=== PATIENT | female | born 1935 | race Caucasian/White ===

== ENCOUNTER 2019-12-24 18:55 | Inpatient (IN) | payer MEDICARE ==
[2019-12-24 19:43] VITALS: BMI 19.2
[2019-12-24] MEDS ORDERED: Furosemide 20 MG TAB PO PRN (21:26)
[2019-12-24] MEDS: Famotidine 20 MG TAB PO SCH (21:51)
[2019-12-24] MEDS: Apixaban 5 MG TAB PO SCH (21:51)
[2019-12-24] MEDS: Mirtazapine 30 MG TAB PO SCH (21:51)
[2019-12-24] MEDS: Sotalol HCl 80 MG TAB PO SCH (21:52)
[2019-12-25 05:57] LABS: ALT (SGPT) 10 U/L (8-55); AST (SGOT) 21 U/L (5-34); Albumin 3.4 g/dL (3.4-4.8); Alkaline Phosphatase 81 U/L (40-110); Anion Gap 14 mmol/L (10-20); BUN (Urea Nitrogen) 33 mg/dL (9.8-20.1); Bilirubin, Total 0.7 mg/dL (0.2-1.2); Calc. Creatinine Clearance 52 mL/min (70-130); Calcium 8.3 mg/dL (7.8-10.44); Carbon Dioxide 26 mmol/L (23-31); Chloride 103 mmol/L (98-107); Estimated GFR-MDRD 81; Glucose 110 mg/dL (83-110); Potassium 4.2 mmol/L (3.5-5.1); Protein, Total 5.4 g/dL (6.0-8.3); Sodium 139 mmol/L (136-145)
[2019-12-25 06:19] LABS: Hemoglobin 7.6 g/dL (12.0-16.0); Hypochromia SLIGHT = 6-15 cells (100X) (0-5/hpf); Lymphocytes 85 % (21-51); MDiff Complete? YES; Mean Corpuscular HGB CONC 32.8 g/dL (32.0-36.0); Mean Corpuscular Hemoglobin 32.1 pg (27.0-31.0); Mean Corpuscular Volume 97.9 fL (78.0-98.0); Mean Platelet Volume 8.3 fL (7.4-10.4); Neutrophil 15 % (42-75); Platelet Count 44 thou/uL (130-400); Platelet Morphology Comment Appears Decreased; RBC Distribution Width 16.4 % (11.5-14.5); Red Blood Cell (RBC) Count 2.38 mill/uL (4.20-5.40)
[2019-12-25 06:27] LABS: White Blood Cell (WBC) Count 5.3 thou/uL (4.8-10.8)
[2019-12-25] MEDS: Ipratropium Bromide 0.06% Nasal Inhaler 15ml EA NARE SCH ×3 (08:07→21:30)
[2019-12-25] MEDS: Apixaban 5 MG TAB PO SCH ×2 (08:08→21:30)
[2019-12-25] MEDS: Famotidine 20 MG TAB PO SCH ×2 (08:08→21:29)
[2019-12-25] MEDS: metFORMIN 500 MG TAB PO SCH ×2 (08:08→17:07)
[2019-12-25] MEDS: Sotalol HCl 80 MG TAB PO SCH ×2 (08:08→21:30)
[2019-12-25] MEDS: Acetaminophen 325 MG TAB PO PRN (13:47)
--- NOTE | 2019-12-25 14:25 | HP ---
CHIEF COMPLAINT: Left hip fracture, status post surgical fixation, for therapy. 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 She noticed immediate pain. She was evaluated in the emergency room, which confirmed a femoral neck fracture. She underwent surgical fixation with arthroplasty. She was felt to be a candidate for inpatient rehabilitation and transferred here. Of note, the patient was noticed to have thrombocytopenia and was given platelet transfusion prior to surgery. She does have history of chronic lymphocytic leukemia. The patient is up in bed, working with therapy. She came to us with no pain medicines, and I have started Tylenol. Apparently, ice packs helped. She apparently had episodes of confusion with both [place] and tramadol. PAST MEDICAL HISTORY: 1. Chronic lymphocytic leukemia. 2. Hypertension. 3. Diabetes mellitus, type 2. 4. Dyslipidemia. 5. Osteoporosis. 6. Possible atrial fibrillation. PAST SURGICAL HISTORY: 1. Pacemaker placement. 2. Left knee arthroplasty. 3. Hysterectomy. 4. EGD. ALLERGIES: CODEINE. PSYCHOSOCIAL HISTORY: Denies any tobacco, alcohol, or recreational drug abuse. FAMILY HISTORY: Positive for colon cancer in her mother. Father had a stroke. One brother had myocardial infarction. MEDICATIONS: She has been transferred here on the following medications: 1. Eliquis 5 mg b.i.d. 2. Lipitor 10 mg daily. 3. Pepcid 20 mg b.i.d. 4. Lasix 20 mg daily as needed. 5. Metformin 500 mg b.i.d. 6. Remeron 30 mg at bedtime. 7. Sotalol 80 mg b.i.d. REVIEW OF SYSTEMS: CARDIOVASCULAR: Denies any chest pain, shortness of breath, palpitations, PND, orthopnea, or pedal edema. RESPIRATORY: Denies any chronic cough, expectoration, or pleuritic-type chest pain. GASTROINTESTINAL: Denies any nausea, vomiting, diarrhea, constipation, hematemesis, melena, or hematochezia. GENITOURINARY: Denies any frequency, urgency, dysuria, or hematuria. CENTRAL NERVOUS SYSTEM: Generalized weakness. EXTREMITIES: Left hip and leg pain. SKIN: Denies any rash. PHYSICAL EXAMINATION: GENERAL: Pleasant, 84-year-old, female, up in bed, trying to work with therapy. No family at bedside. Discussed with nursing. VITAL SIGNS: She is afebrile, heart rate 86, respirations 20, oxygen saturation 92% on room air, blood pressure 118/67. CARDIOVASCULAR: S1 and S2 plus. RESPIRATORY: Normal vesicular breath sounds. ABDOMEN: Soft and nontender. Bowel sounds heard in all quadrants. EXTREMITIES: Without cyanosis or clubbing. Peripheral pulses are palpable. Left hip incision with dressing. CENTRAL NERVOUS SYSTEM: Grossly nonfocal. LABORATORY DATA: laboratory values done this morning show a sodium of 139, potassium 4.2, BUN and creatinine are 33 and 0.69. Blood sugars are 110 and 182. White count is 5.3, H and H are 7.6 and 23.2 with a platelet count of 44. IMPRESSION: 1. Left hip fracture, status post surgical fixation. 2. Diabetes mellitus, type 2. 3. Hypertension. 4. Dyslipidemia. 5. Chronic lymphocytic leukemia. 6. Atrial fibrillation. 7. History of heart failure. 8. Osteoporosis. 9. Deconditioning. PLAN: 1. Continue current medications. 2. 1800-calorie heart-healthy ADA diet. 3. Accu-Cheks with sliding scale coverage. 4. DVT prophylaxis - the patient is on Eliquis. 5. Decubitus precautions. 6. Stress ulcer prophylaxis. 7. Routine laboratory values to monitor platelet counts and hemoglobin. 8. Orthopedic precautions and incision care. 9. Monitor heart rate and rhythm. 10. Consult PT/OT eval and treat. 11. Discussed with the patient in detail. All questions answered. 12. No family at bedside. 13. Start Tylenol 650 q.6 p.r.n. and monitor pain and adjust medications as needed. Job ID: [id number]
[2019-12-25] MEDS: Mirtazapine 30 MG TAB PO SCH (21:29)
[2019-12-25] MEDS: Atorvastatin Calcium 10 MG TAB PO SCH (21:29)
[2019-12-26] MEDS: Apixaban 5 MG TAB PO SCH (08:40)
[2019-12-26] MEDS: Sotalol HCl 80 MG TAB PO SCH ×2 (08:44→21:23)
[2019-12-26] MEDS: metFORMIN 500 MG TAB PO SCH ×2 (08:44→16:00)
[2019-12-26] MEDS: Famotidine 20 MG TAB PO SCH ×2 (08:46→21:24)
[2019-12-26] MEDS: Ipratropium Bromide 0.06% Nasal Inhaler 15ml EA NARE SCH ×3 (08:46→21:24)
--- NOTE | 2019-12-26 10:34 | PRG ---
DATE OF SERVICE: SUBJECTIVE: Ms. Gardiner is doing well. Denies any complaints. No family at bedside. Discussed with nursing. OBJECTIVE: VITAL SIGNS: She is afebrile. Heart rate 71, respirations 20, oxygen saturation 92% on room air, blood pressure 126/68. CARDIOVASCULAR: S1 and S2 plus. RESPIRATORY SYSTEM: Normal vesicular breath sounds. ABDOMEN: Soft and nontender. Bowel sounds heard in all quadrants. EXTREMITIES: Without cyanosis or clubbing. IMPRESSION: 1. Left hip fracture, status post surgical fixation. 2. Chronic lymphocytic leukemia. 3. Diabetes mellitus, type 2. 4. Hypertension. 5. Dyslipidemia. 6. Osteoporosis. 7. Atrial fibrillation. PLAN: 1. Continue current medications. 2. An 1800-calorie heart healthy ADA diet. 3. Accu-Cheks with sliding scale coverage. 4. DVT prophylaxis - the patient is on Eliquis. 5. Decubitus precautions. 6. Stress ulcer prophylaxis. 7. Orthopedic precautions and incision care. 8. Continue therapy. 9. Discussed with the patient in detail. All questions answered. 10. Recheck CBC in the morning. Job ID: [id number]
[2019-12-26] MEDS: Apixaban 2.5 MG TAB PO SCH ×2 (12:33→21:24)
[2019-12-26] MEDS: Acetaminophen 325 MG TAB PO PRN (13:05)
[2019-12-26] MEDS: Mirtazapine 30 MG TAB PO SCH (21:23)
[2019-12-26] MEDS: Atorvastatin Calcium 10 MG TAB PO SCH (21:23)
[2019-12-27 05:55] LABS: Band 1 % (5-11); Hypochromia SLIGHT = 6-15 cells (100X) (0-5/hpf); Lymphocytes 84 % (21-51); MDiff Complete? YES; Mean Corpuscular HGB CONC 33.1 g/dL (32.0-36.0); Mean Corpuscular Hemoglobin 32.4 pg (27.0-31.0); Mean Corpuscular Volume 97.9 fL (78.0-98.0); Mean Platelet Volume 8.7 fL (7.4-10.4); Monocytes 1 % (0-10); Neutrophil 12 % (42-75); Platelet Count 39 thou/uL (130-400); Platelet Morphology Comment Appears Decreased; Polychromasia SLIGHT = 2-3 cells (100X) (0-2/hpf); RBC Distribution Width 16.5 % (11.5-14.5); Reactive Lymphocytes 2 % (0-10); Red Blood Cell (RBC) Count 2.15 mill/uL (4.20-5.40); White Blood Cell (WBC) Count 3.9 thou/uL (4.8-10.8)
[2019-12-27] MEDS: Famotidine 20 MG TAB PO SCH ×2 (08:39→21:20)
[2019-12-27] MEDS: Sotalol HCl 80 MG TAB PO SCH ×2 (08:40→21:20)
[2019-12-27] MEDS: metFORMIN 500 MG TAB PO SCH ×2 (08:40→17:41)
[2019-12-27] MEDS: Apixaban 2.5 MG TAB PO SCH ×2 (08:40→21:21)
[2019-12-27] MEDS: Ipratropium Bromide 0.06% Nasal Inhaler 15ml EA NARE SCH ×3 (08:42→21:21)
[2019-12-27] MEDS: Acetaminophen 325 MG TAB PO PRN (15:14)
[2019-12-27] MEDS: Atorvastatin Calcium 10 MG TAB PO SCH (21:20)
[2019-12-27] MEDS: Mirtazapine 30 MG TAB PO SCH (21:20)
--- NOTE | 2019-12-28 07:14 | PRG ---
DATE OF SERVICE: 12/27/2019 SUBJECTIVE: The patient lying in the bed, sleeping, awakens, alert, slightly confused. Does remember the physician from , but is denying any complaints in her left hip, and some lack of memory about the cause of the fall. She denies any shortness of breath, chest pain, palpitations, nausea, or vomiting. LABORATORY DATA: Shows white count 3900, hematocrit 21, hemoglobin 7. Accu-Cheks ranged from 126 to 162. OBJECTIVE: LUNGS: Clear with decreased breath sounds. CARDIAC: Showed rhythm. ABDOMEN: Soft and nontender. EXTREMITIES: Left hip incision healing well. ASSESSMENT: 1. Resolving left hip fracture, status post open reduction and internal fixation. 2. Chronic lymphocytic leukemia with chronic anemia. We will monitor closely. 3. Type 2 diabetes, controlled to goal. 4. Atrial fibrillation with rate controlled on anticoagulation. 5. Hypertension, controlled to goal. PLAN: 1. Continue PT, OT. 2. Continue rate control on anticoagulation of atrial fibrillation. 3. Continue stress ulcer prophylaxis. 4. Continue to monitor CBC and basic metabolic profile closely to monitor renal function and her chronic lymphocytic leukemia. Job ID: [id number]
[2019-12-28 07:36] LABS: Anisocytosis MODERATE=16-30 cells (100X) (0-5/hpf); Band 4 % (5-11); Hypochromia SLIGHT = 6-15 cells (100X) (0-5/hpf); Lymphocytes 83 % (21-51); MDiff Complete? YES; Mean Corpuscular Hemoglobin 32.5 pg (27.0-31.0); Mean Corpuscular Volume 98.7 fL (78.0-98.0); Mean Platelet Volume 8.2 fL (7.4-10.4); Neutrophil 13 % (42-75); Platelet Count 42 thou/uL (130-400); Platelet Morphology Comment Appears Decreased; RBC Distribution Width 16.9 % (11.5-14.5); Red Blood Cell (RBC) Count 2.16 mill/uL (4.20-5.40); White Blood Cell (WBC) Count 3.4 thou/uL (4.8-10.8)
[2019-12-28 07:40] LABS: ALT (SGPT) 10 U/L (8-55); AST (SGOT) 14 U/L (5-34); Albumin 3.3 g/dL (3.4-4.8); Alkaline Phosphatase 64 U/L (40-110); Anion Gap 15 mmol/L (10-20); BUN (Urea Nitrogen) 20 mg/dL (9.8-20.1); Bilirubin, Total 0.7 mg/dL (0.2-1.2); Calc. Creatinine Clearance 56 mL/min (70-130); Calcium 8.4 mg/dL (7.8-10.44); Carbon Dioxide 26 mmol/L (23-31); Chloride 107 mmol/L (98-107); Estimated GFR-MDRD 88; Globulin 1.9 g/dL (2.4-3.5); Glucose 130 mg/dL (83-110); Potassium 4.5 mmol/L (3.5-5.1); Protein, Total 5.2 g/dL (6.0-8.3); Sodium 143 mmol/L (136-145)
[2019-12-28] MEDS: Sotalol HCl 80 MG TAB PO SCH ×2 (08:27→21:24)
[2019-12-28] MEDS: metFORMIN 500 MG TAB PO SCH ×2 (08:27→16:22)
[2019-12-28] MEDS: Apixaban 2.5 MG TAB PO SCH ×2 (08:28→21:24)
[2019-12-28] MEDS: Famotidine 20 MG TAB PO SCH ×2 (08:28→21:24)
[2019-12-28] MEDS: Ipratropium Bromide 0.06% Nasal Inhaler 15ml EA NARE SCH ×3 (08:29→22:03)
[2019-12-28] MEDS: Acetaminophen 325 MG TAB PO PRN (17:28)
--- NOTE | 2019-12-28 19:08 | PRG ---
DATE OF SERVICE: 12/28/2019 SUBJECTIVE: The patient is much more awake and alert, lucid, but states she is still very weak, and is having some shortness of breath. She states she was taking her furosemide daily at home and not on as-needed basis. OBJECTIVE: VITAL SIGNS: Her O2 saturation is down to 90% on room air, temperature is 97, pulse is 70, respirations 16, blood pressure 117/59. LUNGS: Show decreased breath sounds at bases. CARDIAC: Shows irregularly irregular rhythm. ABDOMEN: Soft and nontender. SKIN/EXTREMITIES: Display no edema, clubbing, or cyanosis. ASSESSMENT: 1. Resolving left hip fracture, minimal pain. 2. Chronic lymphocytic leukemia, chronic anemia, stable. 3. Type 2 diabetes, controlled to goal. 4. Atrial fibrillation with rate control on anticoagulation. 5. Hypertension, controlled to goal. 6. Worsening hypoxemia, possibly due to fluid retention and we will restart back on the Lasix 20 mg daily that she was taking at home. PLAN: 1. Continue PT/OT. 2. Lasix 20 mg daily. 3. Continue rate control on anticoagulation for atrial fibrillation. 4. Continue stress ulcer prophylaxis. Job ID: [id number]
[2019-12-28] MEDS: Mirtazapine 30 MG TAB PO SCH (21:24)
[2019-12-28] MEDS: Atorvastatin Calcium 10 MG TAB PO SCH (21:24)
[2019-12-28] MEDS ORDERED: Sodium Chloride 0.9% 1,000 ML ONE (21:50)
[2019-12-28] MEDS ORDERED: Sodium Chloride 0.9% 20 ML ONE (21:50)
--- NOTE | 2019-12-28 22:23 | RAD ---
EXAM: Single view of the chest HISTORY: Code Green with altered mental status COMPARISON: None FINDINGS: Single view of the chest shows an enlarged cardiomediastinal silhouette. A pacemaker seen with its leads in the right atrium and ventricle. There is no evidence of consolidation, mass, or pleural effusion. The bones are unremarkable. IMPRESSION: No evidence of acute cardiopulmonary disease
[2019-12-28 22:24] LABS: INR-International Normal Ratio 1.5; Lactic Acid 1.1 mmol/L (0.5-2.2); PTT 35.6 SEC (22.9-36.1); Prothrombin Time 18.4 SEC (12.0-14.7)
[2019-12-28 22:29] LABS: ALT (SGPT) 10 U/L (8-55); AST (SGOT) 13 U/L (5-34); Albumin 3.2 g/dL (3.4-4.8); Alkaline Phosphatase 59 U/L (40-110); Anion Gap 14 mmol/L (10-20); BUN (Urea Nitrogen) 21 mg/dL (9.8-20.1); Bilirubin, Total 0.7 mg/dL (0.2-1.2); Calc. Creatinine Clearance 54 mL/min (70-130); Calcium 8.1 mg/dL (7.8-10.44); Carbon Dioxide 25 mmol/L (23-31); Chloride 108 mmol/L (98-107); Estimated GFR-MDRD 85; Globulin 1.8 g/dL (2.4-3.5); Glucose 137 mg/dL (83-110); Potassium 4.2 mmol/L (3.5-5.1); Sodium 143 mmol/L (136-145)
[2019-12-28 22:36] LABS: Troponin I Less than 0.010 ng/mL (< 0.028)
[2019-12-28 22:37] LABS: CKMB 0.2 ng/mL (0-6.6)
[2019-12-28 22:41] LABS: Anisocytosis SLIGHT = 6-15 cells (100X) (0-5/hpf); Band 7 % (5-11); Hemoglobin 6.5 g/dL (12.0-16.0); Hypochromia SLIGHT = 6-15 cells (100X) (0-5/hpf); Lymphocytes 78 % (21-51); MDiff Complete? YES; Mean Corpuscular HGB CONC 33.4 g/dL (32.0-36.0); Mean Corpuscular Hemoglobin 31.8 pg (27.0-31.0); Mean Corpuscular Volume 95.2 fL (78.0-98.0); Mean Platelet Volume 8.5 fL (7.4-10.4); Monocytes 2 % (0-10); Neutrophil 13 % (42-75); Platelet Count 43 thou/uL (130-400); Platelet Morphology Comment Appears Decreased; RBC Distribution Width 16.7 % (11.5-14.5); Red Blood Cell (RBC) Count 2.04 mill/uL (4.20-5.40); White Blood Cell (WBC) Count 3.3 thou/uL (4.8-10.8)
--- NOTE | 2019-12-28 23:08 | CT ---
EXAM: CT brain without contrast HISTORY: Altered mental status. Patient is on blood thinners. COMPARISON: None TECHNIQUE: Multiple contiguous axial images were obtained and a CT of the brain without contrast. FINDINGS: There are scattered hypodensities in the subcortical and periventricular white matter consi stent with small vessel ischemic disease. There is no evidence of hydrocephalus, intracranial hemorrhage, or extra-axial fluid collection. The calvarium and overlying soft tissues are unremarkable. The visualized paranasal sinuses and masto id air cells are well aerated. IMPRESSION: No evidence of acute intracranial abnormality
[2019-12-29] MEDS ORDERED: Sodium Chloride 0.9% 1,000 ML IV SCH (02:45)
[2019-12-29 06:46] LABS: Bilirubin Negative (Negative); Blood, Urine Negative (Negative); Clarity Clear (Clear); Glucose, Urine (Dipstick) Negative (Negative); Leukocyte Negative (Negative); Nitrite Negative (Negative); Protein, Urine (Dipstick) 30 mg/dL (Neg-Trace)
[2019-12-29 06:49] LABS: Urine Culture Reflex No No
[2019-12-29 06:52] LABS: RBC/HPF None Seen HPF (0-3); Squamous Epithelial None Seen HPF (0-3); WBC/HPF 0-3 HPF (0-3)
[2019-12-29 06:53] LABS: Bacteria/HPF Rare-Few HPF (None Seen)
[2019-12-29] MEDS: Apixaban 2.5 MG TAB PO SCH ×2 (08:27→21:15)
[2019-12-29] MEDS: metFORMIN 500 MG TAB PO SCH ×2 (08:27→18:38)
[2019-12-29] MEDS: Famotidine 20 MG TAB PO SCH ×2 (08:27→21:15)
[2019-12-29] MEDS: Furosemide 20 MG TAB PO SCH (08:28)
[2019-12-29] MEDS: Sotalol HCl 80 MG TAB PO SCH ×2 (08:28→21:15)
[2019-12-29] MEDS: Ipratropium Bromide 0.06% Nasal Inhaler 15ml EA NARE SCH ×3 (08:30→23:49)
[2019-12-29] MEDS ORDERED: Diphenoxylate HCl/Atropine Tablet PO SCH (10:30)
--- NOTE | 2019-12-29 11:42 | PRG ---
DATE OF SERVICE: 12/29/2019 SUBJECTIVE: The patient had an episode of unresponsiveness last night precipitating a code green, which determined no significant abnormality and she became slowly more responsive and within 15 to 20 minutes, she did have laboratory done, which showed stable atrial fibrillation. No evidence of significant dehydration or infection, but a worsening of her chronic anemia from 7.6 down to 6.5. She had not received any sedative drugs, although she had been receiving mirtazapine previously. She complains mainly of diarrhea for the last 24 hours with no nausea, vomiting, although she is having decreasing appetite. She also complained of a sore mouth. LABORATORY DATA: Examination specifically showed her to have subjective white count of 3300, hematocrit 19, hemoglobin 6.5. PT 18.4, INR 1.5. Sodium 143, potassium 4.2, chloride 108, bicarb 25, BUN 21, creatinine 0.66, glucose 137, calcium 8.1, total bilirubin 0.7, AST 13, ALT 10, alkaline phosphatase 59. Troponin less than 0.010. Albumin 3.2. Urinalysis within normal limits. CT scan of the brain also showed no evidence of intracranial hemorrhage or masses. OBJECTIVE: MOUTH: Shows white coating on the tongue. LUNGS: Clear. NEUROLOGIC: Showed no focal findings. The patient is awake and alert at this time, only complaining of weakness and sore mouth. CARDIAC: Shows an irregularly irregular rhythm. ABDOMEN: Soft and nontender. ASSESSMENT: 1. Monilial stomatitis and thrush. We will treat with nystatin 500,000 swish and swallow 4 times daily. 2. Chronic lymphocytic leukemia with chronic anemia, but worsened recently down to hemoglobin 6.5. We will give 1 unit of packed cells. 3. Atrial fibrillation with rate control and anticoagulation. 4. Left femoral neck fracture, status post left hip replacement, healing well. PLAN: 1. Continue PT/OT. 2. Continue rate control anticoagulation of atrial fibrillation. 3. Continue stress ulcer prophylaxis. 4. Start nystatin swish and swallow. 5. Give Lomotil 1 now for diarrhea and monitor closely. 6. Continue to stress oral intake. Job ID: [id number]
[2019-12-29] MEDS: Nystatin 500,000 UNITS/5 ML UDCUP SSW SCH ×3 (12:15→21:15)
[2019-12-29 21:00] LABS: Hemoglobin 7.5 g/dL (12.0-16.0)
[2019-12-29] MEDS: Mirtazapine 30 MG TAB PO SCH (21:15)
[2019-12-29] MEDS: Atorvastatin Calcium 10 MG TAB PO SCH (21:15)
[2019-12-30] MEDS: Famotidine 20 MG TAB PO SCH ×2 (08:22→20:56)
[2019-12-30] MEDS: Sotalol HCl 80 MG TAB PO SCH ×2 (08:22→20:57)
[2019-12-30] MEDS: Furosemide 20 MG TAB PO SCH (08:23)
[2019-12-30] MEDS: Apixaban 2.5 MG TAB PO SCH ×2 (08:23→20:57)
[2019-12-30] MEDS: metFORMIN 500 MG TAB PO SCH ×2 (08:23→16:01)
[2019-12-30] MEDS: Ipratropium Bromide 0.06% Nasal Inhaler 15ml EA NARE SCH ×3 (08:23→20:57)
[2019-12-30] MEDS: Nystatin 500,000 UNITS/5 ML UDCUP SSW SCH ×4 (08:24→20:56)
[2019-12-30] MEDS: Acetaminophen 325 MG TAB PO PRN (09:29)
--- NOTE | 2019-12-30 19:39 | PRG ---
DATE OF SERVICE: 12/30/2019 SUBJECTIVE: The patient is awake and alert, in no distress, has been cooperating with therapy. She states she is exhausted, is not eating well because she does not like the food. OBJECTIVE: VITAL SIGNS: Shows temperature is 99.6, pulse 68, respirations 16, O2 sats 96% on room air, and blood pressure is 117/58. LUNGS: Clear. CARDIAC: Showed regular rhythm. SKIN/EXTREMITIES: Show healing left lateral hip incision. LABORATORY DATA: Hemoglobin is up to 7.5 after transfusion of 1 unit of packed cells, hematocrit 22. Accu-Cheks ranged from 114 to 162. ASSESSMENT: 1. Resolving left hip replacement, status post fracture of femoral neck. 2. Chronic lymphocytic leukemia with worsened anemia, improved with transfusion. We will monitor. 3. Type 2 diabetes, controlled to goal. 4. Atrial fibrillation with rate control, on anticoagulation. No evidence of bleeding. 5. Hypertension, controlled to goal. 6. Hypoxemia, resolved on furosemide 20 mg daily. PLAN: 1. Continue PT, OT. 2. Continue furosemide. 3. Continue to monitor hemoglobin. Transfuse if less than 7. 4. Continue rate control and anticoagulation of atrial fibrillation. Job ID: [id number]
[2019-12-30] MEDS: Mirtazapine 30 MG TAB PO SCH (20:56)
[2019-12-30] MEDS: Atorvastatin Calcium 10 MG TAB PO SCH (20:57)
[2019-12-31] MEDS: Sotalol HCl 80 MG TAB PO SCH ×2 (07:59→20:36)
[2019-12-31] MEDS: Nystatin 500,000 UNITS/5 ML UDCUP SSW SCH ×4 (07:59→20:36)
[2019-12-31] MEDS: metFORMIN 500 MG TAB PO SCH ×2 (07:59→17:03)
[2019-12-31] MEDS: Famotidine 20 MG TAB PO SCH ×2 (07:59→20:36)
[2019-12-31] MEDS: Apixaban 2.5 MG TAB PO SCH ×2 (08:00→20:36)
[2019-12-31] MEDS: Furosemide 20 MG TAB PO SCH (08:00)
[2019-12-31] MEDS: Ipratropium Bromide 0.06% Nasal Inhaler 15ml EA NARE SCH ×3 (08:00→20:37)
[2019-12-31] MEDS: Acetaminophen 325 MG TAB PO PRN ×2 (08:52→20:36)
[2019-12-31] MEDS: Atorvastatin Calcium 10 MG TAB PO SCH (20:36)
[2019-12-31] MEDS: Mirtazapine 30 MG TAB PO SCH (20:37)
[2020-01-01] MEDS: Nystatin 500,000 UNITS/5 ML UDCUP SSW SCH ×4 (09:09→20:51)
[2020-01-01] MEDS: Acetaminophen 325 MG TAB PO PRN ×2 (09:10→20:54)
[2020-01-01] MEDS: metFORMIN 500 MG TAB PO SCH ×2 (09:10→18:03)
[2020-01-01] MEDS: Sotalol HCl 80 MG TAB PO SCH ×2 (09:10→20:54)
[2020-01-01] MEDS: Famotidine 20 MG TAB PO SCH ×2 (09:10→20:54)
[2020-01-01] MEDS: Furosemide 20 MG TAB PO SCH (09:11)
[2020-01-01] MEDS: Apixaban 2.5 MG TAB PO SCH ×2 (09:11→20:54)
[2020-01-01] MEDS: Ipratropium Bromide 0.06% Nasal Inhaler 15ml EA NARE SCH ×3 (09:11→20:51)
--- NOTE | 2020-01-01 17:20 | PRG ---
DATE OF SERVICE: 01/01/2020 SUBJECTIVE: The patient feels well except for sore throat and is having also recurrent diarrhea. Having no chest pain, shortness of breath, or cough. She is cooperating with therapy and having less left leg pain. OBJECTIVE: VITAL SIGNS: Blood pressure is 127/59, pulse 65, O2 sats 96% on room air, and temperature 98.7. LUNGS: Clear. CARDIAC: Showed irregular rhythm. ABDOMEN: Soft, minimally tender. SKIN/EXTREMITIES: Show no edema, clubbing, or cyanosis. NEUROLOGIC: Intact. ASSESSMENT: 1. Persistent oropharyngeal pain on nystatin. May try Diflucan. It also may treat for possible strep as the patient is having low-grade fever. 2. New onset of diarrhea. We will check for Clostridium difficile and treat with Lomotil. 3. Atrial fibrillation, rate control, on anticoagulation. 4. Chronic lymphocytic leukemia with anemia. We will check CBC and basic metabolic in a.m. Job ID: [id number]
--- NOTE | 2020-01-01 17:25 | PRG ---
DATE OF SERVICE: 12/31/2019 SUBJECTIVE: The patient feels weak and tired today, but is having no shortness of breath, chest pain, still complaining mainly of pain in her mouth and difficulty eating despite being started on nystatin swish and swallow. Having minimal pain in her leg and is cooperating with therapy. OBJECTIVE: VITAL SIGNS: Shows her blood pressure is 118/54 . LUNGS: Clear. CARDIAC: Regular rhythm. ABDOMEN: Soft and nontender. SKIN AND EXTREMITIES: Healing left lateral hip incision. ENT: Thrush on the tongue. ASSESSMENT: 1. Oropharyngeal candidiasis, on nystatin. 2. Resolving left total hip replacement. 3. Stable chronic lymphocytic leukemia. 4. Deconditioning, improving. 5. Type 2 diabetes, controlled to goal. 6. Atrial fibrillation with rate control and anticoagulation. PLAN: Continue PT and OT. Continue nystatin. Continue rate control and anticoagulation of atrial fibrillation. Continue to monitor vital signs with therapy. Job ID: [id number]
[2020-01-01] MEDS: Atorvastatin Calcium 10 MG TAB PO SCH (20:54)
[2020-01-01] MEDS: Mirtazapine 30 MG TAB PO SCH (20:54)
[2020-01-02 05:33] LABS: Hemoglobin 6.6 g/dL (12.0-16.0); Red Blood Cell (RBC) Count 2.01 mill/uL (4.20-5.40); White Blood Cell (WBC) Count 2.9 thou/uL (4.8-10.8)
[2020-01-02 05:34] LABS: Mean Corpuscular HGB CONC 33.3 g/dL (32.0-36.0); Mean Corpuscular Hemoglobin 32.6 pg (27.0-31.0); Mean Corpuscular Volume 97.7 fL (78.0-98.0); Platelet Count 51 thou/uL (130-400); RBC Distribution Width 17.6 % (11.5-14.5)
[2020-01-02 05:35] LABS: %Basophils 0.5 % (0.0-1.0); %Eosinophils 0.4 % (0.0-10.0); %Lymphocytes 79.4 % (21.0-51.0); %Monocytes 1.7 % (0.0-10.0); Mean Platelet Volume 11.1 fL (7.4-10.4)
[2020-01-02 05:36] LABS: #Lymphocytes 2.3 thou/uL (1.20-3.40); #Neutrophils 0.5 thou/uL (1.40-6.50)
[2020-01-02 05:42] LABS: ALT (SGPT) 7 U/L (8-55); AST (SGOT) 13 U/L (5-34); Alkaline Phosphatase 52 U/L (40-110); Anion Gap 13 mmol/L (10-20); BUN (Urea Nitrogen) 19 mg/dL (9.8-20.1); Bilirubin, Total 0.7 mg/dL (0.2-1.2); Calc. Creatinine Clearance 53 mL/min (70-130); Calcium 8.1 mg/dL (7.8-10.44); Carbon Dioxide 25 mmol/L (23-31); Chloride 107 mmol/L (98-107); Estimated GFR-MDRD 84; Globulin 1.8 g/dL (2.4-3.5); Glucose 105 mg/dL (83-110); Potassium 3.8 mmol/L (3.5-5.1); Protein, Total 4.8 g/dL (6.0-8.3); Sodium 141 mmol/L (136-145)
[2020-01-02] MEDS: metFORMIN 500 MG TAB PO SCH ×2 (09:24→17:24)
[2020-01-02] MEDS: Nystatin 500,000 UNITS/5 ML UDCUP SSW SCH ×4 (09:25→21:00)
[2020-01-02] MEDS: Apixaban 2.5 MG TAB PO SCH (09:26)
[2020-01-02] MEDS: Ipratropium Bromide 0.06% Nasal Inhaler 15ml EA NARE SCH ×3 (09:26→20:58)
[2020-01-02] MEDS: Famotidine 20 MG TAB PO SCH ×2 (09:26→20:59)
[2020-01-02] MEDS: Furosemide 20 MG TAB PO SCH (09:26)
[2020-01-02] MEDS: Sotalol HCl 80 MG TAB PO SCH ×2 (09:26→20:59)
--- NOTE | 2020-01-02 14:30 | PRG ---
DATE OF SERVICE: 01/02/2020 SUBJECTIVE: The patient is lying in bed, feels weak and tired. No shortness of breath or chest pain. States she has no energy and unable to do therapy. She is having decreased throat pain. No further fever. OBJECTIVE: VITAL SIGNS: O2 saturation is 95% on room air, temperature is 98, respirations are 16, pulse is 66, blood pressure is 139/59. LUNGS: Clear. CARDIAC: Showed regular rhythm. LABORATORY DATA: However, this morning showed sodium 141, potassium 3.8, chloride 107, bicarb 25, BUN 19, creatinine 0.67, calcium 8.1, total bilirubin 0.7, AST 13, ALT 7, total protein 4.8, albumin 3.0. Hemoglobin down to 6.6 with hematocrit of 19, white count of 2900, 78% lymphocytes, platelet count down is to . ASSESSMENT: 1. 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 2. Atrial fibrillation with rate control and anticoagulation and thrombocytopenia. Considering discontinuation of apixaban because of thrombocytopenia. 3. Left hip replacement, healing well. PLAN: 1. Discontinue apixaban because of pancytopenia, worsening hemoglobin. 2. 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 3. Deconditioning minimally improved secondary to fatigue and inability to cooperate with therapy. 4. Diabetes, type 2, well controlled. PLAN: Continue PT/OT. Arrange followup with metal cnc operator and oncologist. Discontinue apixaban secondary to severe thrombocytopenia. Transfuse 1 unit of packed cells and repeat CBC in the a.m. Job ID: [id number]
[2020-01-02 16:15] LABS: Hemoglobin 8.9 g/dL (12.0-16.0)
[2020-01-02] MEDS: Atorvastatin Calcium 10 MG TAB PO SCH (20:59)
[2020-01-02] MEDS: Mirtazapine 30 MG TAB PO SCH (20:59)
[2020-01-03 06:22] LABS: Anisocytosis MODERATE=16-30 cells (100X) (0-5/hpf); Bite Cells SLIGHT = 2-5 cells (100X) (0-1/hpf); Eosinophils 2 % (0-10); Hemoglobin 8.3 g/dL (12.0-16.0); Hypochromia MODERATE=16-30 cells (100X) (0-5/hpf); Lymphocytes 65 % (21-51); MDiff Complete? YES; Mean Corpuscular HGB CONC 33.9 g/dL (32.0-36.0); Mean Corpuscular Hemoglobin 32.2 pg (27.0-31.0); Mean Corpuscular Volume 94.9 fL (78.0-98.0); Mean Platelet Volume 8.6 fL (7.4-10.4); Monocytes 6 % (0-10); Neutrophil 14 % (42-75); Ovalocytes SLIGHT = 2-5 cells (100X) (0-1/hpf); Platelet Count 49 thou/uL (130-400); Platelet Morphology Comment Appears Decreased; Poikilocytosis MODERATE=16-30 cells (100X) (0-5/hpf); RBC Distribution Width 16.7 % (11.5-14.5); Reactive Lymphocytes 13 % (0-10); Red Blood Cell (RBC) Count 2.57 mill/uL (4.20-5.40); Tear Drops SLIGHT = 2-5 cells (100X) (0-1/hpf); White Blood Cell (WBC) Count 2.9 thou/uL (4.8-10.8)
[2020-01-03] MEDS: Sotalol HCl 80 MG TAB PO SCH ×2 (08:39→20:34)
[2020-01-03] MEDS: Famotidine 20 MG TAB PO SCH ×2 (08:39→20:34)
[2020-01-03] MEDS: Nystatin 500,000 UNITS/5 ML UDCUP SSW SCH ×4 (08:39→20:37)
[2020-01-03] MEDS: Furosemide 20 MG TAB PO SCH (08:39)
[2020-01-03] MEDS: Ipratropium Bromide 0.06% Nasal Inhaler 15ml EA NARE SCH ×3 (08:40→20:33)
[2020-01-03] MEDS: metFORMIN 500 MG TAB PO SCH ×2 (08:40→16:29)
[2020-01-03] MEDS: Loperamide HCl 2 MG CAP PO PRN ×2 (10:12→12:52)
[2020-01-03] MEDS: Acetaminophen 325 MG TAB PO PRN (10:12)
[2020-01-03] MEDS: Mirtazapine 30 MG TAB PO SCH (20:34)
[2020-01-03] MEDS: Atorvastatin Calcium 10 MG TAB PO SCH (20:34)
[2020-01-04] MEDS: Sotalol HCl 80 MG TAB PO SCH ×2 (08:28→21:13)
[2020-01-04] MEDS: Famotidine 20 MG TAB PO SCH ×2 (08:28→21:13)
[2020-01-04] MEDS: Nystatin 500,000 UNITS/5 ML UDCUP SSW SCH ×4 (08:28→21:13)
[2020-01-04] MEDS: metFORMIN 500 MG TAB PO SCH ×2 (08:28→17:39)
[2020-01-04] MEDS: Furosemide 20 MG TAB PO SCH (08:28)
[2020-01-04] MEDS: Ipratropium Bromide 0.06% Nasal Inhaler 15ml EA NARE SCH ×3 (08:29→21:13)
[2020-01-04] MEDS: Acetaminophen 325 MG TAB PO PRN ×3 (10:07→21:13)
[2020-01-04] MEDS: Loperamide HCl 2 MG CAP PO PRN (13:38)
--- NOTE | 2020-01-04 17:04 | PRG ---
DATE OF SERVICE: 01/03/2020 SUBJECTIVE: Ms. Gardiner is resting in bed and denies any complaints. She just had her lunch. No family at bedside. Discussed with nursing. OBJECTIVE: VITAL SIGNS: She is afebrile. Heart rate is 63, respirations 20, oxygen saturation 92% on room air, blood pressure 156/66. CARDIOVASCULAR: S1 and S2 plus. RESPIRATORY: Normal vesicular breath sounds. ABDOMEN: Soft, nontender. Bowel sounds heard in all quadrants. EXTREMITIES: Without cyanosis or clubbing. CENTRAL NERVOUS SYSTEM: Grossly nonfocal. IMPRESSION: 1. Left hip fracture, status post surgical fixation. 2. Chronic lymphocytic leukemia. 3. Diabetes mellitus type 2. 4. Hypertension. 5. Dyslipidemia. 6. Osteoporosis. PLAN: 1. Continue current medications. 2. 1800 calorie heart healthy ADA diet. 3. Accu-Cheks with sliding scale coverage. 4. Orthopedic precautions and incision care. 5. Continue physical therapy. 6. Routine laboratory values. Job ID: [id number]
--- NOTE | 2020-01-04 17:21 | PRG ---
DATE OF SERVICE: 01/04/2020 DISCUSSION: Ms. Gardiner is doing the same. She is sleeping but arousable. OBJECTIVE: VITAL SIGNS: She is afebrile. Heart rate is 68, respirations 18, oxygen saturation 93% on room air, and blood pressure 136/65. CARDIOVASCULAR: S1 and S2 plus. RESPIRATORY: Normal vesicular breath sounds. ABDOMEN: Soft and nontender. Bowel sounds heard all quadrants. EXTREMITIES: Without cyanosis or clubbing. CENTRAL NERVOUS SYSTEM: Generalized weakness, otherwise nonfocal. LABORATORY VALUES: Her blood sugars are great at 120, 106, 118, 99, 115, and 120. IMPRESSION: 1. Left hip fracture, status post surgical fixation. 2. Chronic lymphocytic leukemia. 3. Diabetes mellitus, type 2. 4. Hypertension. 5. Dyslipidemia. 6. Osteoporosis. 7. Atrial fibrillation. PLAN: 1. Continue current medications. 2. 1800-calorie heart-healthy ADA diet. 3. Accu-Cheks with sliding scale coverage. 4. Monitor blood pressure and adjust medications as needed. 5. Monitor heart rate and rhythm. 6. DVT prophylaxis - she is on Eliquis. 7. Decubitus precautions. 8. Stress ulcer prophylaxis. 9. Orthopedic precautions and incision care. 10. Continue therapy. 11. Dr. Upton back [facility]. Job ID: [id number]
[2020-01-04] MEDS: Mirtazapine 30 MG TAB PO SCH (21:13)
[2020-01-04] MEDS: Atorvastatin Calcium 10 MG TAB PO SCH (21:13)
[2020-01-05] MEDS: Sotalol HCl 80 MG TAB PO SCH ×2 (09:14→20:55)
[2020-01-05] MEDS: Famotidine 20 MG TAB PO SCH ×2 (09:14→20:56)
[2020-01-05] MEDS: Furosemide 20 MG TAB PO SCH (09:14)
[2020-01-05] MEDS: Ipratropium Bromide 0.06% Nasal Inhaler 15ml EA NARE SCH ×3 (09:15→20:55)
[2020-01-05] MEDS: metFORMIN 500 MG TAB PO SCH ×2 (09:15→17:21)
[2020-01-05] MEDS: Nystatin 500,000 UNITS/5 ML UDCUP SSW SCH ×4 (09:18→20:56)
[2020-01-05] MEDS: Acetaminophen 325 MG TAB PO PRN ×2 (11:38→20:56)
--- NOTE | 2020-01-05 16:35 | PRG ---
DATE OF SERVICE: 01/05/2020 SUBJECTIVE: The patient feels well. No complaints except for fatigue and increasing pain in her left hip. She is having no cough, shortness of breath, or chest pain, and feels she cannot do the therapy. OBJECTIVE: VITAL SIGNS: Shows temperature is 97.2, pulse 65, respirations 18, O2 saturations 96% on room air, and blood pressure 126/61. LUNGS: Clear. CARDIAC: Shows irregular rhythm. ABDOMEN: Soft and nontender. SKIN/EXTREMITIES: Showed no edema, clubbing, or cyanosis. NEUROLOGICAL: Intact. LABORATORY DATA: White count is 2900, hematocrit 24, hemoglobin 8.3, and platelet count 49,000, lymphocytes 65%, reactive lymphocytes 13%. Accu-Cheks 104 to 120. ASSESSMENT: 1. Slowly improving left hip fracture, status post left hip replacement. 2. Chronic lymphocytic leukemia with worsening anemia, possibly due to myelofibrosis, is also now having pancytopenia with decreased white count and platelets and we will discuss Oncology evaluation with family. 3. Type 2 diabetes, controlled to goal. 4. Hypertension, controlled to goal. 5. Atrial fibrillation with rate controlled with no anticoagulation secondary to significant thrombocytopenia. PLAN: 1. Discussed Oncology and Hematology evaluation with son and family. 2. Continue PT/OT. 3. Continue to monitor vital signs and laboratory closely. Job ID: [id number]
[2020-01-05] MEDS: Mirtazapine 30 MG TAB PO SCH (20:56)
[2020-01-05] MEDS: Atorvastatin Calcium 10 MG TAB PO SCH (20:56)
[2020-01-06] MEDS: Sotalol HCl 80 MG TAB PO SCH ×2 (09:00→20:27)
[2020-01-06] MEDS: metFORMIN 500 MG TAB PO SCH ×2 (09:00→17:46)
[2020-01-06] MEDS: Famotidine 20 MG TAB PO SCH ×2 (09:01→20:27)
[2020-01-06] MEDS: Furosemide 20 MG TAB PO SCH (09:01)
[2020-01-06] MEDS: Nystatin 500,000 UNITS/5 ML UDCUP SSW SCH ×4 (09:01→20:27)
[2020-01-06] MEDS: Ipratropium Bromide 0.06% Nasal Inhaler 15ml EA NARE SCH ×3 (09:02→20:26)
--- NOTE | 2020-01-06 13:33 | PRG ---
DATE OF SERVICE: 01/06/2020 SUBJECTIVE: The patient feels weak. No particular respiratory distress, having stable pain in her left hip, but is just very weak and unable to do therapy. Denying any fever, chills, nausea, or vomiting. OBJECTIVE: VITAL SIGNS: Show blood pressure 144/64, pulse 64, temperature 97, O2 sats 95% on room air. LUNGS: Clear. CARDIAC: Shows irregular rhythm. ABDOMEN: Soft and nontender. SKIN AND EXTREMITIES: Display no edema, clubbing, or cyanosis. There are some bruises and ecchymoses. ASSESSMENT: 1. 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 White count 2900, hemoglobin 8.3, and platelet count 49,000. Limiting her exercise tolerance and her ability to cooperate with therapy and improve after her hip fracture. 2. Atrial fibrillation with rate controlled, but now with no anticoagulation secondary to significant thrombocytopenia. 3. Type 2 diabetes, controlled to goal. 4. Hypertension, controlled to goal. PLAN: 1. Discuss oncology evaluation with son. 2. Continue PT/OT. 3. Continue to monitor vital signs. 4. Repeat CBC and comprehensive metabolic profile today. Job ID: [id number]
[2020-01-06 14:46] LABS: ALT (SGPT) 6 U/L (8-55); AST (SGOT) 15 U/L (5-34); Albumin 3.4 g/dL (3.4-4.8); Alkaline Phosphatase 68 U/L (40-110); Anion Gap 16 mmol/L (10-20); BUN (Urea Nitrogen) 19 mg/dL (9.8-20.1); Bilirubin, Total 0.8 mg/dL (0.2-1.2); Calc. Creatinine Clearance 56 mL/min (70-130); Calcium 8.3 mg/dL (7.8-10.44); Carbon Dioxide 23 mmol/L (23-31); Chloride 103 mmol/L (98-107); Estimated GFR-MDRD 88; Globulin 1.9 g/dL (2.4-3.5); Glucose 104 mg/dL (83-110); Potassium 4.1 mmol/L (3.5-5.1); Protein, Total 5.3 g/dL (6.0-8.3); Sodium 138 mmol/L (136-145)
[2020-01-06 14:53] LABS: #Basophils 0.1 thou/uL (0.0-0.2); #Lymphocytes 3.5 thou/uL (1.20-3.40); #Neutrophils 0.5 thou/uL (1.40-6.50); %Basophils 1.5 % (0.0-1.0); %Eosinophils 0.3 % (0.0-10.0); %Lymphocytes 86.1 % (21.0-51.0); %Monocytes 0.8 % (0.0-10.0); %Neutrophils 11.2 % (42.0-75.0); Hemoglobin 9.3 g/dL (12.0-16.0); Mean Corpuscular HGB CONC 33.6 g/dL (32.0-36.0); Mean Corpuscular Hemoglobin 32.5 pg (27.0-31.0); Mean Corpuscular Volume 96.8 fL (78.0-98.0); Mean Platelet Volume 8.5 fL (7.4-10.4); Platelet Count 62 thou/uL (130-400); RBC Distribution Width 17.5 % (11.5-14.5); Red Blood Cell (RBC) Count 2.84 mill/uL (4.20-5.40); White Blood Cell (WBC) Count 4.1 thou/uL (4.8-10.8)
[2020-01-06] MEDS: Mirtazapine 30 MG TAB PO SCH (20:27)
[2020-01-06] MEDS: Atorvastatin Calcium 10 MG TAB PO SCH (20:27)
[2020-01-07] MEDS: Sotalol HCl 80 MG TAB PO SCH ×2 (08:06→20:09)
[2020-01-07] MEDS: Furosemide 20 MG TAB PO SCH (08:06)
[2020-01-07] MEDS: Famotidine 20 MG TAB PO SCH ×2 (08:06→20:09)
[2020-01-07] MEDS: Nystatin 500,000 UNITS/5 ML UDCUP SSW SCH ×4 (08:06→20:09)
[2020-01-07] MEDS: Ipratropium Bromide 0.06% Nasal Inhaler 15ml EA NARE SCH ×3 (08:07→22:09)
[2020-01-07] MEDS: metFORMIN 500 MG TAB PO SCH ×2 (08:07→16:54)
--- NOTE | 2020-01-07 15:55 | PRG ---
DATE OF SERVICE: 01/07/2020 SUBJECTIVE: The patient feels very weak. Denies any chest pain or shortness of breath. Has improving left hip pain. Has improved appetite, but no nausea or vomiting. OBJECTIVE: VITAL SIGNS: Pulse 60, blood pressure 127/60, O2 saturations 92% on room air. LUNGS: Clear. CARDIAC: Showed regular rhythm. ABDOMEN: Soft, nontender. SKIN AND EXTREMITIES: Show healing lateral hip incision. LABORATORY DATA: Yesterday showed a white count of 4100, hematocrit 27, hemoglobin 9, and platelet count 62,000. Sodium 138, potassium 4.1, chloride 103, bicarb 23, BUN 19, creatinine 0.64, glucose 106 to 110, ALT 6, albumin 3.4. ASSESSMENT: 1. Deconditioning, improving minimally. 2. Left hip fracture, healing well, status post left hemiarthroplasty. 3. 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 4. Atrial fibrillation with rate control and anticoagulation. 5. Hypertension, controlled to goal. 6. Diabetes, controlled to goal. PLAN: 1. Discussed with son obtaining report from previous oncologist as family and the patient unwilling to go back to [place] for opinion of her pancytopenia. 2. Continue PT/OT. 3. Continue to monitor vital signs. 4. Continue rate control and anticoagulation. Job ID: [id number]
[2020-01-07] MEDS: Acetaminophen 325 MG TAB PO PRN (16:54)
[2020-01-07] MEDS: Atorvastatin Calcium 10 MG TAB PO SCH (20:08)
[2020-01-07] MEDS: Mirtazapine 30 MG TAB PO SCH (20:09)
[2020-01-08] MEDS: Ipratropium Bromide 0.06% Nasal Inhaler 15ml EA NARE SCH ×3 (08:35→21:00)
[2020-01-08] MEDS: Famotidine 20 MG TAB PO SCH ×2 (08:35→20:59)
[2020-01-08] MEDS: metFORMIN 500 MG TAB PO SCH ×2 (08:36→17:26)
[2020-01-08] MEDS: Furosemide 20 MG TAB PO SCH (08:36)
[2020-01-08] MEDS: Sotalol HCl 80 MG TAB PO SCH ×2 (08:36→20:59)
[2020-01-08] MEDS: Nystatin 500,000 UNITS/5 ML UDCUP SSW SCH ×4 (08:39→20:59)
[2020-01-08] MEDS: Acetaminophen 325 MG TAB PO PRN ×2 (09:45→20:58)
[2020-01-08] MEDS: Atorvastatin Calcium 10 MG TAB PO SCH (20:58)
[2020-01-08] MEDS: Mirtazapine 30 MG TAB PO SCH (20:59)
[2020-01-09] MEDS: metFORMIN 500 MG TAB PO SCH ×2 (08:15→17:53)
[2020-01-09] MEDS: Famotidine 20 MG TAB PO SCH ×2 (08:15→21:09)
[2020-01-09] MEDS: Sotalol HCl 80 MG TAB PO SCH ×2 (08:16→21:09)
[2020-01-09] MEDS: Furosemide 20 MG TAB PO SCH (08:16)
[2020-01-09] MEDS: Nystatin 500,000 UNITS/5 ML UDCUP SSW SCH ×4 (08:19→21:10)
[2020-01-09] MEDS: Ipratropium Bromide 0.06% Nasal Inhaler 15ml EA NARE SCH ×3 (08:19→21:09)
[2020-01-09] MEDS: Loperamide HCl 2 MG CAP PO PRN (09:57)
--- NOTE | 2020-01-09 17:36 | PRG ---
DATE OF SERVICE: 01/08/2020 SUBJECTIVE: The patient feels weak, tired. No particular distress at rest. No fever, chills, or chest pain. OBJECTIVE: VITAL SIGNS: Shows her temperature is 97.2, pulse 62, respirations 18, O2 sats 94% on room air, blood pressure 119/60. LUNGS: Clear. CARDIAC: Regular rhythm. ABDOMEN: Soft and nontender. SKIN/EXTREMITIES: Shows mild tenderness over the left hip with healing lateral hip incision. ASSESSMENT: 1. Resolving left hip fracture, status post left hemiarthroplasty. 2. Deconditioning, improving slowly. 3. Chronic lymphocytic leukemia with possible deterioration in myelodysplastic syndrome with pancytopenia and significant fatigue. 4. Atrial fibrillation with rate control and anticoagulation. 5. Hypertension, controlled to goal. 6. Diabetes, controlled to goal. PLAN: 1. Continue PT, OT. 2. Continue rate-controlled anticoagulation of atrial fibrillation. Have son obtain records from previous oncologist and refer to Dr. Jaime next week when records available. Job ID: [id number]
[2020-01-09] MEDS: Acetaminophen 325 MG TAB PO PRN (18:50)
[2020-01-09] MEDS: Atorvastatin Calcium 10 MG TAB PO SCH (21:09)
[2020-01-10 05:40] LABS: Anisocytosis SLIGHT = 6-15 cells (100X) (0-5/hpf); Band 1 % (5-11); Hypochromia SLIGHT = 6-15 cells (100X) (0-5/hpf); Lymphocytes 93 % (21-51); MDiff Complete? YES; Mean Corpuscular HGB CONC 33.9 g/dL (32.0-36.0); Mean Corpuscular Hemoglobin 32.8 pg (27.0-31.0); Mean Corpuscular Volume 96.8 fL (78.0-98.0); Mean Platelet Volume 8.1 fL (7.4-10.4); Neutrophil 6 % (42-75); Platelet Count 59 thou/uL (130-400); Platelet Morphology Comment Appears Decreased; RBC Distribution Width 18.3 % (11.5-14.5); Red Blood Cell (RBC) Count 2.73 mill/uL (4.20-5.40); White Blood Cell (WBC) Count 3.1 thou/uL (4.8-10.8)
[2020-01-10 07:20] LABS: Bilirubin Small (Negative); Blood, Urine Negative (Negative); Clarity Clear (Clear); Glucose, Urine (Dipstick) Negative (Negative); Leukocyte Trace (Negative); Nitrite Positive (Negative); Protein, Urine (Dipstick) Trace mg/dL (Neg-Trace)
[2020-01-10 07:25] LABS: RBC/HPF 0-3 HPF (0-3)
[2020-01-10 07:26] LABS: Bacteria/HPF 3+ HPF (None Seen); Squamous Epithelial 0-3 HPF (0-3)
[2020-01-10 07:27] LABS: Urine Culture Reflex Yes Yes
[2020-01-10] MEDS: Furosemide 20 MG TAB PO SCH (08:53)
[2020-01-10] MEDS: Famotidine 20 MG TAB PO SCH ×2 (08:53→20:49)
[2020-01-10] MEDS: metFORMIN 500 MG TAB PO SCH ×2 (08:53→17:16)
[2020-01-10] MEDS: Nystatin 500,000 UNITS/5 ML UDCUP SSW SCH ×4 (08:53→20:59)
[2020-01-10] MEDS: Ipratropium Bromide 0.06% Nasal Inhaler 15ml EA NARE SCH ×3 (08:54→20:49)
[2020-01-10] MEDS: Sotalol HCl 80 MG TAB PO SCH ×2 (08:54→20:48)
[2020-01-10] MEDS: Atorvastatin Calcium 10 MG TAB PO SCH (20:48)
[2020-01-11] MEDS: Famotidine 20 MG TAB PO SCH ×2 (08:33→21:40)
[2020-01-11] MEDS: Sotalol HCl 80 MG TAB PO SCH ×2 (08:33→21:40)
[2020-01-11] MEDS: metFORMIN 500 MG TAB PO SCH ×2 (08:33→16:31)
[2020-01-11] MEDS: Nystatin 500,000 UNITS/5 ML UDCUP SSW SCH ×4 (08:33→21:41)
[2020-01-11] MEDS: Furosemide 20 MG TAB PO SCH (08:34)
[2020-01-11] MEDS: Ipratropium Bromide 0.06% Nasal Inhaler 15ml EA NARE SCH ×3 (08:34→21:40)
--- NOTE | 2020-01-11 12:04 | PRG ---
DATE OF SERVICE: 01/10/2020 SUBJECTIVE: The patient feels well. No complaints. Lying in bed. States she is feeling stronger. She has had not had any therapy today. OBJECTIVE: VITAL SIGNS: Temperature is 97.8, pulse 61, respirations 16, O2 sats 94% on room air, blood pressure 145/65. LUNGS: Clear. CARDIAC: Showed irregular rhythm. ABDOMEN: Soft and nontender. SKIN/EXTREMITIES: Display no edema, clubbing, or cyanosis. LABORATORY DATA: Urine culture showing 2 gram-negative rods, sensitivities will be back tomorrow. The patient is having no symptoms of dysuria or hematuria. Accu-Cheks range 96 to 136. ASSESSMENT: 1. Stable chronic lymphocytic leukemia with possible conversion of myelodysplastic syndrome. We will get labs in the a.m. and we will discuss with Hematology tomorrow. 2. Deconditioning, improving. 3. Left hip fracture status post hemiarthroplasty, improving. 4. Atrial fibrillation with rate control with anticoagulation, stable. PLAN: 1. Continue PT, OT. 2. Await results of labs tomorrow. 3. Discuss with Hematology tomorrow. Job ID: [id number]
--- NOTE | 2020-01-11 12:08 | PRG ---
DATE OF SERVICE: 01/09/2020 SUBJECTIVE: The patient feels well, lying in bed, appears to be more alert, stronger, in no distress, is eating better. States she is having decreasing left hip pain. OBJECTIVE: VITAL SIGNS: Temperature 96.7, pulse 62, respirations 20, O2 saturations 94% on room air, blood pressure 136/75. LUNGS: Clear. CARDIAC: Shows regular rhythm. ABDOMEN: Soft and nontender. SKIN/EXTREMITIES: Show no edema. ASSESSMENT AND PLAN: 1. Resolving left hip fracture. 2. Stable chronic lymphocytic leukemia with possible deterioration to myelodysplastic syndrome worsening pancytopenia. 3. Deconditioning, slightly improved. 4. Atrial fibrillation with rate control and with no anticoagulation at this time because of severe thrombocytopenia. 5. Diabetes, controlled to goal. 6. Hypertension, controlled to goal. 7. Continue PT/OT. 8. Repeat labs in the a.m. 9. Attempt to obtain phone number of oncologist and obtain records from oncologist in [place]. 10. Continue to monitor for signs of cerebral emboli and rapid ventricular response of atrial fibrillation. Job ID: [id number]
[2020-01-11] MEDS: Atorvastatin Calcium 10 MG TAB PO SCH (21:40)
[2020-01-12 06:02] LABS: ALT (SGPT) 6 U/L (8-55); AST (SGOT) 12 U/L (5-34); Albumin 3.3 g/dL (3.4-4.8); Alkaline Phosphatase 67 U/L (40-110); Anion Gap 13 mmol/L (10-20); BUN (Urea Nitrogen) 14 mg/dL (9.8-20.1); Bilirubin, Total 0.8 mg/dL (0.2-1.2); Calc. Creatinine Clearance 62 mL/min (70-130); Calcium 8.2 mg/dL (7.8-10.44); Carbon Dioxide 29 mmol/L (23-31); Chloride 101 mmol/L (98-107); Estimated GFR-MDRD Greater than 90; Globulin 1.7 g/dL (2.4-3.5); Glucose 111 mg/dL (83-110); Potassium 3.9 mmol/L (3.5-5.1); Sodium 139 mmol/L (136-145)
[2020-01-12 06:03] LABS: Anisocytosis SLIGHT = 6-15 cells (100X) (0-5/hpf); Band 6 % (5-11); Hemoglobin 8.8 g/dL (12.0-16.0); Hypochromia SLIGHT = 6-15 cells (100X) (0-5/hpf); Lymphocytes 89 % (21-51); MDiff Complete? YES; Mean Corpuscular HGB CONC 33.7 g/dL (32.0-36.0); Mean Corpuscular Volume 97.8 fL (78.0-98.0); Mean Platelet Volume 8.4 fL (7.4-10.4); Monocytes 1 % (0-10); Neutrophil 4 % (42-75); Platelet Count 63 thou/uL (130-400); Platelet Morphology Comment Appears Decreased; RBC Distribution Width 18.3 % (11.5-14.5); Red Blood Cell (RBC) Count 2.67 mill/uL (4.20-5.40); White Blood Cell (WBC) Count 3.4 thou/uL (4.8-10.8)
[2020-01-12] MEDS: Famotidine 20 MG TAB PO SCH ×2 (08:12→21:12)
[2020-01-12] MEDS: metFORMIN 500 MG TAB PO SCH ×2 (08:12→16:32)
[2020-01-12] MEDS: Ipratropium Bromide 0.06% Nasal Inhaler 15ml EA NARE SCH ×3 (08:13→21:13)
[2020-01-12] MEDS: Furosemide 20 MG TAB PO SCH (08:13)
[2020-01-12] MEDS: Sotalol HCl 80 MG TAB PO SCH ×2 (08:13→21:12)
[2020-01-12] MEDS: Nystatin 500,000 UNITS/5 ML UDCUP SSW SCH ×4 (08:13→21:12)
[2020-01-12] MEDS: Atorvastatin Calcium 10 MG TAB PO SCH (21:12)
[2020-01-12] MEDS: Acetaminophen 325 MG TAB PO PRN (22:31)
[2020-01-13] MEDS: metFORMIN 500 MG TAB PO SCH ×2 (08:26→17:12)
[2020-01-13] MEDS: Sotalol HCl 80 MG TAB PO SCH ×2 (08:26→20:57)
[2020-01-13] MEDS: Furosemide 20 MG TAB PO SCH (08:26)
[2020-01-13] MEDS: Nystatin 500,000 UNITS/5 ML UDCUP SSW SCH (08:26)
[2020-01-13] MEDS: Famotidine 20 MG TAB PO SCH ×2 (08:27→20:55)
[2020-01-13] MEDS: Ipratropium Bromide 0.06% Nasal Inhaler 15ml EA NARE SCH ×3 (08:27→20:55)
[2020-01-13] MEDS: Acetaminophen 325 MG TAB PO PRN (17:20)
[2020-01-13] MEDS: Atorvastatin Calcium 10 MG TAB PO SCH (20:55)
[2020-01-13] MEDS: Gabapentin 100 MG CAP PO SCH (20:55)
[2020-01-14 05:32] LABS: Band 1 % (5-11); Hemoglobin 8.7 g/dL (12.0-16.0); Hypochromia SLIGHT = 6-15 cells (100X) (0-5/hpf); Lymphocytes 87 % (21-51); MDiff Complete? YES; Mean Corpuscular HGB CONC 32.7 g/dL (32.0-36.0); Mean Corpuscular Hemoglobin 32.3 pg (27.0-31.0); Mean Corpuscular Volume 98.7 fL (78.0-98.0); Mean Platelet Volume 8.1 fL (7.4-10.4); Monocytes 1 % (0-10); Neutrophil 7 % (42-75); Platelet Count 64 thou/uL (130-400); Platelet Morphology Comment Appears Decreased; RBC Distribution Width 18.7 % (11.5-14.5); Reactive Lymphocytes 4 % (0-10); White Blood Cell (WBC) Count 3.4 thou/uL (4.8-10.8)
[2020-01-14 05:33] LABS: ALT (SGPT) Less than 6 U/L (8-55); AST (SGOT) 13 U/L (5-34); Albumin 3.4 g/dL (3.4-4.8); Alkaline Phosphatase 75 U/L (40-110); Anion Gap 14 mmol/L (10-20); BUN (Urea Nitrogen) 17 mg/dL (9.8-20.1); Bilirubin, Total 0.7 mg/dL (0.2-1.2); Calc. Creatinine Clearance 55 mL/min (70-130); Calcium 8.3 mg/dL (7.8-10.44); Carbon Dioxide 29 mmol/L (23-31); Chloride 99 mmol/L (98-107); Estimated GFR-MDRD 87; Globulin 1.7 g/dL (2.4-3.5); Glucose 95 mg/dL (83-110); Potassium 3.8 mmol/L (3.5-5.1); Protein, Total 5.1 g/dL (6.0-8.3); Sodium 138 mmol/L (136-145)
[2020-01-14] MEDS: metFORMIN 500 MG TAB PO SCH ×2 (08:55→16:33)
[2020-01-14] MEDS: Famotidine 20 MG TAB PO SCH ×2 (08:55→21:52)
[2020-01-14] MEDS: Sotalol HCl 80 MG TAB PO SCH ×2 (08:55→21:52)
[2020-01-14] MEDS: Ipratropium Bromide 0.06% Nasal Inhaler 15ml EA NARE SCH ×3 (08:56→21:51)
[2020-01-14] MEDS: Furosemide 20 MG TAB PO SCH (08:56)
[2020-01-14] MEDS: Gabapentin 100 MG CAP PO SCH (21:52)
[2020-01-14] MEDS: Atorvastatin Calcium 10 MG TAB PO SCH (21:52)
--- NOTE | 2020-01-14 22:21 | PRG ---
DATE OF SERVICE: 01/14/2020 SUBJECTIVE: The patient feels better today, walk today, but again had recurrent bleeding with serous hematoma from her left lateral hip incision. Having no shortness of breath or chest pain. Increasing strength. She is eating better. OBJECTIVE: White count 3400, hematocrit 26, hemoglobin 8.7, and platelet count is 64,000. Sodium 138, potassium 3.8, chloride 99, bicarb 29, BUN 17, creatinine 0.65, glucose 95, . LUNGS: Clear. CARDIAC: Irregular rhythm. ABDOMEN: Soft and nontender. ASSESSMENT: Lateral left hip incision with some serous drainage. subcutaneous hematoma. No evidence of infection. 1. Pancytopenia, possibly due to conversion of chronic lymphocytic leukemia, myelodysplastic syndrome. 2. Atrial fibrillation with rate control with no anticoagulation. 3. Deconditioning, improving slightly. PLAN: 1. Discussed with Dr. Jaime tomorrow, unable to discuss with personal business improvement manager. 2. Hold physical therapy. 3. Continue to monitor drainage with DuoDerm. 4. Continue rate-controlled anticoagulation of atrial fibrillation. Job ID: [id number]
--- NOTE | 2020-01-15 07:14 | PRG ---
DATE OF SERVICE: 01/11/2020 SUBJECTIVE: The patient feels weak when doing exercise, but feels well at rest. No chest pain or dyspnea. She is eating well. She is still concerned about her continued weakness. OBJECTIVE: VITAL SIGNS: Shows temperature is 97.3, pulse 69, respirations 18, O2 saturation 93% on room air, blood pressure 118/58. LUNGS: Clear. CARDIAC: Regular rhythm. ABDOMEN: Soft and nontender. SKIN/EXTREMITIES: Show healing lateral hip incision, but with some serous drainage with mild induration or erythema. ASSESSMENT: 1. Resolving left hip fracture with minimal pain with persistent serous drainage from hematoma. 2. Deconditioning, improving greatly. 3. Chronic lymphocytic leukemia with deteriorating platelet count, anemia, and leukopenia. We will attempt to discuss with personal automatic coil machine operator. 4. Atrial fibrillation with rate control, __hold anticoagulation secondary to bleeding and thrombocytopenia. PLAN: 1. Continue PT, OT sparingly. 2. Hold apixaban for atrial fibrillation. 3. Discuss pancytopenia with automatic coil machine operator. Job ID: [id number] [facility]
[2020-01-15] MEDS: Ipratropium Bromide 0.06% Nasal Inhaler 15ml EA NARE SCH ×3 (08:14→20:51)
[2020-01-15] MEDS: Famotidine 20 MG TAB PO SCH ×2 (08:14→20:52)
[2020-01-15] MEDS: metFORMIN 500 MG TAB PO SCH ×2 (08:14→16:14)
[2020-01-15] MEDS: Furosemide 20 MG TAB PO SCH (08:14)
[2020-01-15] MEDS: Sotalol HCl 80 MG TAB PO SCH ×2 (08:14→20:52)
[2020-01-15] MEDS: Acetaminophen 325 MG TAB PO PRN (20:52)
[2020-01-15] MEDS: Atorvastatin Calcium 10 MG TAB PO SCH (20:52)
[2020-01-15] MEDS: Gabapentin 100 MG CAP PO SCH (20:52)
[2020-01-16] MEDS: Famotidine 20 MG TAB PO SCH ×2 (08:37→22:00)
[2020-01-16] MEDS: metFORMIN 500 MG TAB PO SCH ×2 (08:37→17:08)
[2020-01-16] MEDS: Ipratropium Bromide 0.06% Nasal Inhaler 15ml EA NARE SCH ×3 (08:37→21:59)
[2020-01-16] MEDS: Sotalol HCl 80 MG TAB PO SCH ×2 (08:37→22:00)
[2020-01-16] MEDS: Furosemide 20 MG TAB PO SCH (08:37)
--- NOTE | 2020-01-16 17:27 | PRG ---
DATE OF SERVICE: 01/15/2020 SUBJECTIVE: The patient feels well at rest, but is still concerned about her wound leaking with minimal pain and is cooperating with therapy. OBJECTIVE: VITAL SIGNS: Temperature is 97, pulse 60, respirations 18, O2 saturations 92% on room air, blood pressure 113/65. Hemoglobin yesterday was 8.7, stable. Platelet count low at 63, but stable. White count low at 3400, but stable. Left lateral hip incision is oozing blood, appears to be serous. LUNGS: Clear. CARDIAC: Shows irregular rhythm. ASSESSMENT: 1. Resolving left hip fracture, status post left hemiarthroplasty. 2. Persistent bleeding, possibly due to malfunction of platelets. Awaiting Hematology consult. 3. Type 2 diabetes, controlled to goal. 4. Atrial fibrillation with rate control. No anticoagulation because of low platelets and continued bleeding. 5. Deconditioning, improving. PLAN: Continue PT and monitor for bleeding. Continue rate control with no anticoagulation of atrial fibrillation. Job ID: [id number]
--- NOTE | 2020-01-16 17:34 | PRG ---
DATE OF SERVICE: 01/16/2020 SUBJECTIVE: The patient feels well, did work with therapy today, but is becoming disgusted with her persistent bleeding and is asking about Hematology consult. OBJECTIVE: LUNGS: Clear. CARDIAC: Shows regular rhythm. ABDOMEN: Soft, nontender. Left lateral hip incision is soaked with blood, but not dripping. ASSESSMENT: 1. Pancytopenia, possible malfunctioning platelets and recurrent drainage from wound. 2. Atrial fibrillation with rate control. 3. Deconditioning, improving. 4. Type 2 diabetes, controlled to goal. PLAN: 1. Continue PT and OT. 2. Repeat CBC, comprehensive metabolic in the a.m. 3. Await consult from Hematology. Job ID: [id number]
[2020-01-16] MEDS: Gabapentin 100 MG CAP PO SCH (22:00)
[2020-01-16] MEDS: Atorvastatin Calcium 10 MG TAB PO SCH (22:00)
[2020-01-16] MEDS: Acetaminophen 325 MG TAB PO PRN (22:00)
[2020-01-17 06:23] LABS: ALT (SGPT) Less than 6 U/L (8-55); AST (SGOT) 12 U/L (5-34); Albumin 3.5 g/dL (3.4-4.8); Alkaline Phosphatase 75 U/L (40-110); Anion Gap 13 mmol/L (10-20); BUN (Urea Nitrogen) 18 mg/dL (9.8-20.1); Bilirubin, Total 0.7 mg/dL (0.2-1.2); Calc. Creatinine Clearance 53 mL/min (70-130); Calcium 8.4 mg/dL (7.8-10.44); Carbon Dioxide 31 mmol/L (23-31); Chloride 98 mmol/L (98-107); Estimated GFR-MDRD 82; Globulin 1.8 g/dL (2.4-3.5); Potassium 3.7 mmol/L (3.5-5.1); Protein, Total 5.3 g/dL (6.0-8.3); Sodium 138 mmol/L (136-145)
[2020-01-17 06:25] LABS: Hemoglobin 8.9 g/dL (12.0-16.0); Lymphocytes 64 % (21-51); MDiff Complete? YES; Mean Corpuscular HGB CONC 33.2 g/dL (32.0-36.0); Mean Corpuscular Hemoglobin 32.8 pg (27.0-31.0); Mean Corpuscular Volume 98.9 fL (78.0-98.0); Mean Platelet Volume 11.6 fL (7.4-10.4); Metamyelocyte 2 % (0-0); Microcytosis MODERATE=15-30 cells (100X) (0-5/hpf); Monocytes 10 % (0-10); Neutrophil 14 % (42-75); Platelet Count 76 thou/uL (130-400); Platelet Morphology Comment Appears Decreased; RBC Distribution Width 18.3 % (11.5-14.5); Reactive Lymphocytes 10 % (0-10); Red Blood Cell (RBC) Count 2.71 mill/uL (4.20-5.40); White Blood Cell (WBC) Count 3.6 thou/uL (4.8-10.8)
[2020-01-17 06:35] LABS: Glucose 96 mg/dL (83-110)
[2020-01-17] MEDS: Furosemide 20 MG TAB PO SCH (08:24)
[2020-01-17] MEDS: metFORMIN 500 MG TAB PO SCH ×2 (08:24→16:44)
[2020-01-17] MEDS: Famotidine 20 MG TAB PO SCH ×2 (08:24→21:28)
[2020-01-17] MEDS: Ipratropium Bromide 0.06% Nasal Inhaler 15ml EA NARE SCH ×3 (08:24→21:29)
[2020-01-17] MEDS: Sotalol HCl 80 MG TAB PO SCH ×2 (08:25→21:29)
--- NOTE | 2020-01-17 15:17 | PRG ---
DATE OF SERVICE: 01/17/2020 SUBJECTIVE: The patient feels well and is wanting to go home to see her area representative. Says she is still having problems with oozing from the wound, but is having minimal pain and is feeling stronger. OBJECTIVE: LUNGS: Clear. CARDIAC: Regular rhythm. ABDOMEN: Soft, nontender. LABORATORY DATA: Shows white count 3600, hematocrit 26, hemoglobin 8.9, and platelet count 76,000, 64% lymphocytes, 14% neutrophils. Liver functions normal. ASSESSMENT: 1. Resolving left hip fracture with persistent oozing wound, possibly from platelet dysfunction. 2. 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 3. Atrial fibrillation with rate control with no anticoagulation secondary to thrombocytopenia. PLAN: Discussed discharge planning with the patient and son for possibly 2 days. Job ID: [id number]
--- NOTE | 2020-01-17 15:21 | PRG ---
DATE OF SERVICE: 01/16/2020 SUBJECTIVE: The patient feels well with no complaints, but becoming frustrated by her persistent drainage from her wound. ASSESSMENT: 1. Persistent bloody drainage with no evidence of infection. 2. 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 3. Atrial fibrillation with rate control. PLAN: 1. Culture drainage from wound, although I feel this is most likely blood. 2. Discussed discharge planning with the patient and son. 3. Continue rate control of atrial fibrillation. Job ID: [id number]
[2020-01-17] MEDS: Gabapentin 100 MG CAP PO SCH (21:28)
[2020-01-17] MEDS: Acetaminophen 325 MG TAB PO PRN (21:28)
[2020-01-17] MEDS: Atorvastatin Calcium 10 MG TAB PO SCH (21:28)
[2020-01-18] MEDS: metFORMIN 500 MG TAB PO SCH ×2 (09:27→17:37)
[2020-01-18] MEDS: Ipratropium Bromide 0.06% Nasal Inhaler 15ml EA NARE SCH ×3 (09:27→21:23)
[2020-01-18] MEDS: Sotalol HCl 80 MG TAB PO SCH ×2 (09:27→21:22)
[2020-01-18] MEDS: Famotidine 20 MG TAB PO SCH ×2 (09:27→21:23)
[2020-01-18] MEDS: Furosemide 20 MG TAB PO SCH (09:27)
[2020-01-18] MEDS: Atorvastatin Calcium 10 MG TAB PO SCH (21:22)
[2020-01-18] MEDS: Gabapentin 100 MG CAP PO SCH (21:22)
[2020-01-19] MEDS: Furosemide 20 MG TAB PO SCH (09:06)
[2020-01-19] MEDS: Sotalol HCl 80 MG TAB PO SCH ×2 (09:06→21:06)
[2020-01-19] MEDS: metFORMIN 500 MG TAB PO SCH ×2 (09:06→17:59)
[2020-01-19] MEDS: Famotidine 20 MG TAB PO SCH ×2 (09:06→21:06)
[2020-01-19] MEDS: Ipratropium Bromide 0.06% Nasal Inhaler 15ml EA NARE SCH ×3 (09:07→21:05)
[2020-01-19] MEDS: Acetaminophen 325 MG TAB PO PRN (21:06)
[2020-01-19] MEDS: Atorvastatin Calcium 10 MG TAB PO SCH (21:06)
[2020-01-19] MEDS: Gabapentin 100 MG CAP PO SCH (21:06)
[2020-01-19] MEDS: Cefdinir 300 MG CAP PO SCH (21:06)
--- NOTE | 2020-01-20 08:50 | PRG ---
DATE OF SERVICE: 01/19/2020 SUBJECTIVE: The patient feels well. She eats wells. She is working with therapy today. She is having decreasing drainage, decreasing tenderness in her leg. She is asking when she can be discharged. As she is improving, we will most likely discharge in the next several days and is unable to have any followup with Hematology until discharge. OBJECTIVE: VITAL SIGNS: Shows temperature of 98.5, pulse 60, respirations 18, O2 saturations 94% on room air, and blood pressure 116/56. LUNGS: Clear. Wound appears to be healing with only some minimal area of erythema in the center with decreasing tenderness. LABORATORY DATA: Accu-Cheks ranged from 114 to 122. ASSESSMENT: 1. Resolving left hip fracture with possible superimposed superficial infection, improving on cefdinir treatment. 2. Chronic lymphocytic leukemia with persistent chronic pancytopenia. We will follow up with Hematology also on discharge. 3. Atrial fibrillation with rate controlled with no anticoagulation because of low platelets and we will continue to follow. 4. Deconditioning, improving as the patient contributes therapy. PLAN: 1. Continue PT, OT. 2. Continue cefdinir. 3. Repeat CBC and comprehensive metabolic profile in the a.m. 4. Obtain culture from wound. Job ID: [id number]
[2020-01-20] MEDS: Sotalol HCl 80 MG TAB PO SCH ×2 (08:58→20:38)
[2020-01-20] MEDS: Furosemide 20 MG TAB PO SCH (08:58)
[2020-01-20] MEDS: Ipratropium Bromide 0.06% Nasal Inhaler 15ml EA NARE SCH ×3 (08:58→20:36)
[2020-01-20] MEDS: Famotidine 20 MG TAB PO SCH ×2 (08:58→21:40)
[2020-01-20] MEDS: Acetaminophen 325 MG TAB PO PRN ×2 (08:58→16:19)
[2020-01-20] MEDS: metFORMIN 500 MG TAB PO SCH ×2 (08:58→16:58)
[2020-01-20] MEDS: Cefdinir 300 MG CAP PO SCH ×2 (08:58→20:35)
[2020-01-20 10:56] LABS: ALT (SGPT) 6 U/L (8-55); AST (SGOT) 14 U/L (5-34); Albumin 3.8 g/dL (3.4-4.8); Alkaline Phosphatase 82 U/L (40-110); Anion Gap 15 mmol/L (10-20); BUN (Urea Nitrogen) 22 mg/dL (9.8-20.1); Bilirubin, Total 0.8 mg/dL (0.2-1.2); Calc. Creatinine Clearance 48 mL/min (70-130); Calcium 8.9 mg/dL (7.8-10.44); Carbon Dioxide 28 mmol/L (23-31); Chloride 97 mmol/L (98-107); Estimated GFR-MDRD 74; Globulin 2.1 g/dL (2.4-3.5); Glucose 149 mg/dL (83-110); Protein, Total 5.9 g/dL (6.0-8.3); Sodium 136 mmol/L (136-145)
[2020-01-20 11:13] LABS: MDiff Complete? YES
[2020-01-20 11:14] LABS: Hemoglobin 9.9 g/dL (12.0-16.0); Mean Corpuscular HGB CONC 34.4 g/dL (32.0-36.0); Mean Corpuscular Hemoglobin 33.4 pg (27.0-31.0); Mean Corpuscular Volume 97.3 fL (78.0-98.0); Mean Platelet Volume 8.5 fL (7.4-10.4); Platelet Count 90 thou/uL (130-400); RBC Distribution Width 17.9 % (11.5-14.5); Red Blood Cell (RBC) Count 2.96 mill/uL (4.20-5.40)
[2020-01-20 11:15] LABS: Lymphocytes 83 % (21-51); Monocytes 4 % (0-10); Neutrophil 10 % (42-75); Reactive Lymphocytes 3 % (0-10); White Blood Cell (WBC) Count 7.2 thou/uL (4.8-10.8)
[2020-01-20 11:16] LABS: Anisocytosis SLIGHT = 6-15 cells (100X) (0-5/hpf); Platelet Morphology Comment Appears Decreased
[2020-01-20] MEDS: Atorvastatin Calcium 10 MG TAB PO SCH (20:35)
[2020-01-20] MEDS: Gabapentin 100 MG CAP PO SCH (20:36)
[2020-01-21] MEDS: Cefdinir 300 MG CAP PO SCH (08:26)
[2020-01-21] MEDS: metFORMIN 500 MG TAB PO SCH (08:26)
[2020-01-21] MEDS: Furosemide 20 MG TAB PO SCH (08:27)
[2020-01-21] MEDS: Famotidine 20 MG TAB PO SCH (08:27)
[2020-01-21] MEDS: Sotalol HCl 80 MG TAB PO SCH (08:27)
[2020-01-21] MEDS: Ipratropium Bromide 0.06% Nasal Inhaler 15ml EA NARE SCH (08:28)
[2020-01-21 12:49] LABS: Hemoglobin 9.1 g/dL (12.0-16.0); Mean Corpuscular Hemoglobin 33.4 pg (27.0-31.0); Mean Corpuscular Volume 98.2 fL (78.0-98.0); Mean Platelet Volume 7.9 fL (7.4-10.4); Platelet Count 85 thou/uL (130-400); RBC Distribution Width 17.9 % (11.5-14.5); Red Blood Cell (RBC) Count 2.74 mill/uL (4.20-5.40)
[2020-01-21 12:50] LABS: Anisocytosis SLIGHT = 6-15 cells (100X) (0-5/hpf); Hypochromia SLIGHT = 6-15 cells (100X) (0-5/hpf); Lymphocytes 15 % (21-51); Monocytes 2 % (0-10); Platelet Morphology Comment Appears Decreased; Reactive Lymphocytes 3 % (0-10)
[2020-01-21 12:54] LABS: MDiff Complete? YES; White Blood Cell (WBC) Count 4.4 thou/uL (4.8-10.8)
[2020-01-21 13:45] VITALS: BP 105/62; TEMP 98
--- NOTE | 2020-01-21 13:54 | RAD ---
LEFT HIP 2 VIEWS: Date: 01/21/2020 HISTORY: Postop left hip. FINDINGS: Left hip prosthesis is noted. The acetabular component exhibits a horizontal orientation. Recommend o rthopedic consultation. The femoral prosthesis appears unremarkable. No acute fracture. IMPRESSION: Question orientation of the acetabular component. POS: [facility]
== END 2020-01-21 14:50 | disposition home health service (06) | DRG 560 ==
LOC: NAV ACUTE 18:55
PROVIDERS: ADMIT Internal Medicine; ATTEND Internal Medicine
PROC: 30233N1 Transfusion of Nonautologous Red Blood Cells into Peripheral Vein, Percutaneous Approach (ICD-10-PCS; principal; 2019-12-29)
DX: S72.092D Other fracture of head and neck of left femur, subsequent encounter for closed fracture with routine healing (principal); C91.10 Chronic lymphocytic leukemia of B-cell type not having achieved remission; B37.0 Candidal stomatitis; D61.818 Other pancytopenia; D75.81 Myelofibrosis; I10 Essential (primary) hypertension; E11.9 Type 2 diabetes mellitus without complications; D69.6 Thrombocytopenia, unspecified; Z96.652 Presence of left artificial knee joint; M81.0 Age-related osteoporosis without current pathological fracture; R09.02 Hypoxemia; E78.5 Hyperlipidemia, unspecified; I48.91 Unspecified atrial fibrillation; M79.81 Nontraumatic hematoma of soft tissue; D46.9 Myelodysplastic syndrome, unspecified; R53.81 Other malaise; Z79.01 Long term (current) use of anticoagulants; Z95.0 Presence of cardiac pacemaker; Z90.710 Acquired absence of both cervix and uterus; Z88.5 Allergy status to narcotic agent
CPT/HCPCS: 36415; 36416; 36430; 70450; 71045; 80053; 81001; 82553; 83605; 84484; 85014; 85018; 85025; 85610; 85730; 86850; 86900; 86901; 87070; 87077; 87086; 87186; 87205; 87324; 87449; J7050; P9016

== ENCOUNTER 2020-03-14 16:35 | Inpatient (IN) | payer MEDICARE ==
[2020-03-14 16:46] VITALS: BMI 19.4
[2020-03-14] MEDS ORDERED: Calcium Chloride 1 GM/10 ML Abboject SYRINGE ONE (16:58)
[2020-03-14] MEDS ORDERED: Ipratropium Bromide 0.06% Nasal Inhaler 15ml EA NARE PRN (17:48)
[2020-03-14] MEDS ORDERED: Bisacodyl 10 MG SUPP PR PRN (17:48)
[2020-03-14] MEDS ORDERED: Milk Of Magnesia 30 ML UDCUP PO PRN (18:04)
[2020-03-14] MEDS: Apixaban 2.5 MG TAB PO SCH (20:37)
[2020-03-14] MEDS: Gabapentin 100 MG CAP PO SCH (20:37)
[2020-03-14] MEDS: Mirtazapine 30 MG TAB PO SCH (20:37)
[2020-03-14] MEDS: Acetaminophen 325 MG TAB PO PRN (20:37)
[2020-03-14] MEDS: Famotidine 20 MG TAB PO SCH (20:37)
[2020-03-14] MEDS: Atorvastatin Calcium 10 MG TAB PO SCH (20:37)
[2020-03-15 05:33] LABS: ALT (SGPT) Less than 6 U/L (8-55); AST (SGOT) 19 U/L (5-34); Albumin 3.1 g/dL (3.4-4.8); Alkaline Phosphatase 140 U/L (40-110); Anion Gap 10 mmol/L (10-20); BUN (Urea Nitrogen) 11 mg/dL (9.8-20.1); Bilirubin, Total 0.4 mg/dL (0.2-1.2); Calc. Creatinine Clearance 65 mL/min (70-130); Calcium 7.7 mg/dL (7.8-10.44); Carbon Dioxide 26 mmol/L (23-31); Chloride 106 mmol/L (98-107); Estimated GFR-MDRD Greater than 90; Globulin 1.7 g/dL (2.4-3.5); Glucose 81 mg/dL (83-110); Protein, Total 4.8 g/dL (6.0-8.3); Sodium 138 mmol/L (136-145)
[2020-03-15 05:36] LABS: Anisocytosis MODERATE=16-30 cells (100X) (0-5/hpf); Hemoglobin 8.6 g/dL (12.0-16.0); Hypochromia MODERATE=16-30 cells (100X) (0-5/hpf); Large Platelets SLIGHT; Lymphocytes 78 % (21-51); MDiff Complete? YES; Mean Corpuscular Hemoglobin 34.2 pg (27.0-31.0); Mean Platelet Volume 10.7 fL (7.4-10.4); Monocytes 4 % (0-10); Neutrophil 6 % (42-75); Platelet Count 63 thou/uL (130-400); Platelet Morphology Comment Appears Decreased; Poikilocytosis MODERATE=16-30 cells (100X) (0-5/hpf); RBC Distribution Width 15.7 % (11.5-14.5); Reactive Lymphocytes 12 % (0-10); Red Blood Cell (RBC) Count 2.51 mill/uL (4.20-5.40)
[2020-03-15 05:37] LABS: Manual Diff?? YES
[2020-03-15] MEDS: Famotidine 20 MG TAB PO SCH ×2 (09:20→20:14)
[2020-03-15] MEDS: Multivitamin W/ Minerals 1 TAB PO SCH (09:20)
[2020-03-15] MEDS: Furosemide 20 MG TAB PO SCH (09:20)
[2020-03-15] MEDS: Apixaban 2.5 MG TAB PO SCH ×2 (09:20→20:15)
[2020-03-15] MEDS: FLUoxetine HCl 10 MG CAP PO SCH (09:20)
[2020-03-15] MEDS: Fish Oil 1,000 MG CAP PO SCH (09:21)
[2020-03-15] MEDS: Potassium Chloride 8 MEQ TAB PO SCH (09:21)
[2020-03-15] MEDS: metFORMIN 500 MG TAB PO SCH ×2 (09:21→16:00)
[2020-03-15] MEDS: Acetaminophen 500 MG TAB PO PRN (20:14)
[2020-03-15] MEDS: Mirtazapine 30 MG TAB PO SCH (20:14)
[2020-03-15] MEDS: Gabapentin 100 MG CAP PO SCH (20:14)
[2020-03-15] MEDS: Atorvastatin Calcium 10 MG TAB PO SCH (20:15)
[2020-03-16] MEDS: metFORMIN 500 MG TAB PO SCH ×2 (08:24→16:14)
[2020-03-16] MEDS: Fish Oil 1,000 MG CAP PO SCH (08:24)
[2020-03-16] MEDS: Famotidine 20 MG TAB PO SCH ×2 (08:24→20:21)
[2020-03-16] MEDS: Multivitamin W/ Minerals 1 TAB PO SCH (08:25)
[2020-03-16] MEDS: Apixaban 2.5 MG TAB PO SCH ×2 (08:25→20:21)
[2020-03-16] MEDS: FLUoxetine HCl 10 MG CAP PO SCH (08:25)
[2020-03-16] MEDS: Potassium Chloride 8 MEQ TAB PO SCH (08:25)
[2020-03-16] MEDS: Furosemide 20 MG TAB PO SCH (08:25)
--- NOTE | 2020-03-16 09:47 | PRG ---
DATE OF SERVICE: 03/15/2020 SUBJECTIVE: The patient feels well, cooperating with therapy. She is still very weak. She feels she is ready to get stronger. She is having no pain in her left hip and no oozing. OBJECTIVE: VITAL SIGNS: Show blood pressure is 142/62, temperature is 98, pulse 65, respirations 18, and O2 saturations 98% on room air. LUNGS: Clear. CARDIAC: Showed regular rhythm. ABDOMEN: Soft and nontender. SKIN/EXTREMITIES: No edema, clubbing, or cyanosis. There are ecchymoses over arms and legs. There is a healing left lateral hip incision. LABORATORY DATA: Laboratory show white count 7000, hematocrit 26, hemoglobin 8.6, and platelet count 63,000. Sodium 138, potassium 4.0, chloride 106, bicarb 26, BUN 11, creatinine 0.52, calcium 7.7, total bilirubin 0.4, ALT 6, and alkaline phosphatase 140. ASSESSMENT: 1. Resolving dehiscence of left hip arthroplasty with removal of fat necrosis. 2. Deconditioning, working with therapy. 3. Chronic lymphocytic leukemia with thrombocytopenia and anemia, being followed by Dr. Lopez. 4. Type 2 diabetes, controlled to goal. 5. Atrial fibrillation with rate control, on anticoagulation. 6. Diastolic heart failure, compensated. PLAN: 1. Continue PT, OT. 2. Continue rate control and anticoagulation for atrial fibrillation. 3. Continue Accu-Cheks to monitor and titrate and control diabetes. 4. Review labs and therapy notes. Job ID: [id number]
--- NOTE | 2020-03-16 13:43 | HP ---
HISTORY OF PRESENT ILLNESS: The patient is an 84-year-old white female, well known to myself with a recent left femoral neck fracture, status post open reduction and internal fixation with subsequent need for a total left hip replacement in December 2019. She was admitted to rehab and to SNF, and was able to walk, ambulate and transfer, but continued to have oozing and leaking from her wound with a large subcutaneous hematoma. There was no dislocation of the hip, but apparently the wound finally dehisced last week, required the incision to be opened and large amount of fat necrosis to be debrided with the incision re-closed. She is now admitted to [facility] for a continued PT and OT. She is having no pain in her hip. No fever or chills. There was no sign of infection. She does have comorbidities of chronic lymphocytic leukemia, being followed by Dr. Emanuel Houston as a new patient with possible reinstitution of therapy later this year. She also has a history of hypertension, which has been well controlled with no headaches or dizziness. She also has a history of atrial fibrillation with rate control, anticoagulation, despite having low platelets from her chronic lymphocytic leukemia with no evidence of significant bleeding. She also has comorbidity of type 2 diabetes, which has been well controlled. PAST MEDICAL HISTORY: Also, remarkable obviously for significant osteoporosis, dyslipidemia. PAST SURGICAL HISTORY: Positive for pacemaker placement for tachycardia-bradycardia syndrome, left knee replacement with above-mentioned left hip replacement, hysterectomy. ALLERGIES: SHE IS ALLERGIC TO CODEINE. SOCIAL HISTORY: She is a nonsmoker, nondrinker. She lives in a garage apartment at her son's home. FAMILY MEDICAL HISTORY: Positive for colon cancer in her mother. Father with a stroke. MEDICATIONS: At this time include, 1. Apixaban 2.5 mg twice daily. 2. Atorvastatin 10 nightly. 3. Famotidine 20 twice daily. 4. Fluoxetine 10 daily. 5. Furosemide 20 daily. 6. Gabapentin 100 nightly. 7. Metformin 500 twice daily. 8. Mirtazapine 30 nightly. 9. Pantoprazole 40 daily. 10. Potassium chloride 8 mEq daily. REVIEW OF SYSTEMS: HEENT: She denies any headaches, dizziness, change in vision or hearing, hoarseness, or dysphagia. PULMONARY: She denies cough, sputum production, pneumonia, asthma, or tuberculosis. CARDIOVASCULAR: She denies chest pain, orthopnea, paroxysmal nocturnal dyspnea, or edema. She does have a history of diastolic heart failure in the past and well compensated. GASTROINTESTINAL: She denies nausea, vomiting, diarrhea, constipation, or abdominal pain, but she does have some incontinence at this time both fecal and urinary. GENITOURINARY: She denies dysuria or hematuria. MUSCULOSKELETAL: She has diffuse weakness, but no pain in her left knee or left hip. NEUROLOGIC: She has no history of localized numbness, particularly in the arms or extremities. PHYSICAL EXAMINATION: GENERAL: The patient is an elderly white female, lying in the bed, no acute distress, oriented x3. She does have multiple ecchymoses over her face on the legs. VITAL SIGNS: Showed her to have temperature 99.1, pulse 63, respirations 20, O2 saturations 97% on 2 L, blood pressure 132/63. HEENT: Pupils are equal, round, and reactive to light and accommodation. Sclerae are pale. Conjunctiva are pale. Oral mucous membranes well hydrated. NECK: Supple. There are no nodes or masses. JVP is not elevated. LUNGS: Clear. CARDIAC: Showed regular rhythm. Pacemaker is well healed. ABDOMEN: Soft and nontender with no masses or organomegaly. SKIN AND EXTREMITIES: Display no edema, clubbing, or cyanosis as well as a healing left lateral hip incision with prakash in place. Minimal ooze. NEUROLOGIC: Cranial nerves 2 through 12 are intact. Deep tendon reflexes are 2+ and equal. There are absent Babinski's. LABORATORY DATA: From previous stay at [facility] showed stable hemoglobin, thrombocytopenia, and Accu-Cheks. ASSESSMENT: 1. Resolving dehiscence of left hip arthroplasty with no evidence of dislocation with only finding of fat necrosis, which has been debrided and re-sutured. 2. Deconditioning, inability to maintain activities of daily living. 3. Atrial fibrillation with rate control and anticoagulation with superimposed pacemaker rhythm from tachycardia-bradycardia syndrome. 4. Type 2 diabetes, controlled to goal. 5. Chronic lymphocytic leukemia with significant anemia of 8.6, thrombocytopenia of 63. Being followed by Dr. Houston with no treatment at this time. 6. Diastolic heart failure appears to be compensated. 7. Osteoporosis. 8. Fecal and urinary incontinence, possibly due to just severe weakness. We will monitor closely. PLAN: 1. Start PT and OT. 2. Continue pre-hospitalization medications. 3. Continue rate control anticoagulation of atrial fibrillation. 4. Dressing changes as needed. 5. Continue Accu-Cheks to monitor and titrate and control diabetes. Job ID: [id number]
[2020-03-16] MEDS ORDERED: Loperamide HCl 2 MG CAP PO PRN (18:01)
[2020-03-16] MEDS: Mirtazapine 30 MG TAB PO SCH (20:20)
[2020-03-16] MEDS: Acetaminophen 500 MG TAB PO PRN (20:20)
[2020-03-16] MEDS: Gabapentin 100 MG CAP PO SCH (20:20)
[2020-03-16] MEDS: Atorvastatin Calcium 10 MG TAB PO SCH (20:21)
--- NOTE | 2020-03-17 06:46 | PRG ---
DATE OF SERVICE: 03/16/2020 SUBJECTIVE: The patient is lying in bed, feels well with only complaints of did not like the supper tonight, but did like the lunch very well, and ate very well. She has been cooperating with therapy. Denying any shortness of breath, chest pain, or palpitations. Has noticed that she is going to the bathroom quite a lot and cannot control urine at times, and she is thirsty at times. OBJECTIVE: VITAL SIGNS: Shows blood pressure is stable at 142/67, temperature is 97, pulse 71, respirations 20, and O2 sats 96% on 2 L. LUNGS: Clear. CARDIAC: Examination shows irregular rhythm. ABDOMEN: Soft and nontender. SKIN/EXTREMITIES: Shows diffuse ecchymoses. Left hip incision is healing well. LABORATORY DATA: Creatinine yesterday was normal at 0.52 with GFR of 90. Hemoglobin was stable low at 8.6, platelet count of 63,000, which is also stable. ASSESSMENT: 1. Resolving debridement and removal of fat necrosis and revision of incision over lateral hip incision for recent left total hip. 2. Stable chronic lymphocytic leukemia, being followed by Dr. Houston. 3. Compensated congestive heart failure on furosemide with no evidence of fluid overload. 4. Atrial fibrillation with rate controlled on anticoagulation. 5. Deconditioning, improving, working with therapy. 6. Type 2 diabetes, controlled to goal. PLAN: 1. Discontinue furosemide and potassium. 2. Obtain BMP. 3. Continue rate control and anticoagulation of atrial fibrillation. 4. Continue Accu-Cheks to monitor, titrate, and control diabetes. 5. Continue to stress oral intake with diet. 6. Imodium p.r.n. diarrhea. Job ID: [id number]
[2020-03-17] MEDS: metFORMIN 500 MG TAB PO SCH ×2 (08:28→17:11)
[2020-03-17] MEDS: Famotidine 20 MG TAB PO SCH ×2 (08:28→20:18)
[2020-03-17] MEDS: Apixaban 2.5 MG TAB PO SCH ×2 (08:28→20:19)
[2020-03-17] MEDS: FLUoxetine HCl 10 MG CAP PO SCH (08:29)
[2020-03-17] MEDS: Multivitamin W/ Minerals 1 TAB PO SCH (08:29)
[2020-03-17] MEDS: Fish Oil 1,000 MG CAP PO SCH (08:29)
[2020-03-17] MEDS: Acetaminophen 500 MG TAB PO PRN ×2 (10:56→20:19)
[2020-03-17] MEDS: Mirtazapine 30 MG TAB PO SCH (20:18)
[2020-03-17] MEDS: Gabapentin 100 MG CAP PO SCH (20:18)
[2020-03-17] MEDS: Atorvastatin Calcium 10 MG TAB PO SCH (20:18)
[2020-03-18 05:51] LABS: Hemoglobin 8.5 g/dL (12.0-16.0); Platelet Count 65 thou/uL (130-400)
[2020-03-18 05:56] LABS: Calc. Creatinine Clearance 60 mL/min (70-130); Estimated GFR-MDRD Greater than 90
--- NOTE | 2020-03-18 06:35 | PRG ---
DATE OF SERVICE: 03/17/2020 SUBJECTIVE: The patient feels better, working with therapy. Has had no further indigestion, diarrhea. She is having no pain. OBJECTIVE: VITAL SIGNS: Temperature is 98, pulse 72, respirations 18, O2 sats 93% on room air, blood pressure is elevated to 169/92, but has been better previously. BNP is still elevated at 384. Most recent creatinine 0.52. LUNGS: Clear. CARDIAC: Showed regular rhythm. ABDOMEN: Soft and nontender. SKIN/EXTREMITIES: Display trace edema. No clubbing or cyanosis. CARDIAC: Shows irregular rate and rhythm. ASSESSMENT: 1. Compensated diastolic heart failure. 2. Type 2 diabetes, controlled to goal. 3. Resolving dehiscence of left hip fracture with revision. 4. Deconditioning, working slowly with therapy. PLAN: 1. Continue PT, OT. Monitor for signs of increased fluid retention. She is now off diuretic. 2. Continue metformin to control diabetes. 3. Continue rate control and anticoagulation of atrial fibrillation. Job ID: [id number]
[2020-03-18 07:10] LABS: ALT (SGPT) 6 U/L (8-55); AST (SGOT) 18 U/L (5-34); Albumin 3.2 g/dL (3.4-4.8); Alkaline Phosphatase 107 U/L (40-110); Anion Gap 13 mmol/L (10-20); BUN (Urea Nitrogen) 12 mg/dL (9.8-20.1); Bilirubin, Total 0.4 mg/dL (0.2-1.2); Calc. Creatinine Clearance 58 mL/min (70-130); Calcium 8.2 mg/dL (7.8-10.44); Carbon Dioxide 28 mmol/L (23-31); Chloride 103 mmol/L (98-107); Estimated GFR-MDRD Greater than 90; Globulin 1.7 g/dL (2.4-3.5); Glucose 88 mg/dL (83-110); Potassium 4.2 mmol/L (3.5-5.1); Protein, Total 4.9 g/dL (6.0-8.3); Sodium 140 mmol/L (136-145)
[2020-03-18 07:48] LABS: Hemoglobin 8.6 g/dL (12.0-16.0); MDiff Complete? YES; Mean Corpuscular HGB CONC 31.7 g/dL (32.0-36.0); Mean Corpuscular Hemoglobin 34.4 pg (27.0-31.0); Mean Platelet Volume 9.8 fL (7.4-10.4); Platelet Count 61 thou/uL (130-400); RBC Distribution Width 16.2 % (11.5-14.5); Red Blood Cell (RBC) Count 2.49 mill/uL (4.20-5.40)
[2020-03-18 07:49] LABS: Anisocytosis SLIGHT = 6-15 cells (100X) (0-5/hpf); Hypochromia SLIGHT = 6-15 cells (100X) (0-5/hpf); Large Platelets SLIGHT; Macrocytosis SLIGHT = 6-15 cells (100X) (0-5/hpf); Platelet Morphology Comment Appears Decreased; Poikilocytosis SLIGHT = 6-15 cells (100X) (0-5/hpf)
[2020-03-18 07:50] LABS: Lymphocytes 75 % (21-51); Monocytes 4 % (0-10); Neutrophil 9 % (42-75); Nucleated RBC 1 % (0); Reactive Lymphocytes 12 % (0-10)
[2020-03-18 07:58] LABS: White Blood Cell (WBC) Count 8.6 thou/uL (4.8-10.8)
[2020-03-18] MEDS: Fish Oil 1,000 MG CAP PO SCH (08:11)
[2020-03-18] MEDS: Apixaban 2.5 MG TAB PO SCH ×2 (08:11→20:57)
[2020-03-18] MEDS: Famotidine 20 MG TAB PO SCH ×2 (08:11→20:57)
[2020-03-18] MEDS: metFORMIN 500 MG TAB PO SCH ×2 (08:11→16:32)
[2020-03-18] MEDS: FLUoxetine HCl 10 MG CAP PO SCH (08:12)
[2020-03-18] MEDS: Multivitamin W/ Minerals 1 TAB PO SCH (08:12)
[2020-03-18] MEDS: Acetaminophen 500 MG TAB PO PRN (08:13)
[2020-03-18] MEDS: Gabapentin 100 MG CAP PO SCH (20:57)
[2020-03-18] MEDS: Mirtazapine 30 MG TAB PO SCH (20:57)
[2020-03-18] MEDS: Atorvastatin Calcium 10 MG TAB PO SCH (20:57)
[2020-03-18] MEDS: Acetaminophen 325 MG TAB PO PRN (21:00)
[2020-03-19] MEDS: Famotidine 20 MG TAB PO SCH ×2 (08:15→20:56)
[2020-03-19] MEDS: FLUoxetine HCl 10 MG CAP PO SCH (08:15)
[2020-03-19] MEDS: Multivitamin W/ Minerals 1 TAB PO SCH (08:15)
[2020-03-19] MEDS: Acetaminophen 325 MG TAB PO PRN ×2 (08:15→20:57)
[2020-03-19] MEDS: Fish Oil 1,000 MG CAP PO SCH (08:15)
[2020-03-19] MEDS: Apixaban 2.5 MG TAB PO SCH ×2 (08:16→20:57)
[2020-03-19] MEDS: metFORMIN 500 MG TAB PO SCH ×2 (08:16→15:53)
--- NOTE | 2020-03-19 17:37 | PRG ---
DATE OF SERVICE: 03/19/2020 SUBJECTIVE: The patient feels well, very fatigued, has worked very hard with therapy today, having only complained of recurrent sore mouth. She did get a sponge bath today and felt much better. She is having no shortness of breath or chest pain. OBJECTIVE: VITAL SIGNS: Temperature is 96.6, pulse 95, respirations 20, O2 saturations 95% on 1 L, blood pressure 156/80. LUNGS: Clear. CARDIAC: Showed rhythm. ABDOMEN: Soft and nontender. SKIN AND EXTREMITIES: Display diffuse ecchymoses, but no edema or clubbing. NEUROLOGIC: No focal findings. HIP: Left lateral hip incision healing well with only minimal oozing. LABORATORY DATA: Hemoglobin yesterday is stable at 8.6, white count 8600. Sodium was 140, potassium 4.2, chloride 103, bicarb 28, BUN 12, creatinine 0.59, glucose 88, calcium 8.2, total bilirubin 0.4, AST 18, ALT 6, alkaline phosphatase is 107. BNP 4.9. Albumin 3.2. ASSESSMENT: 1. Resolving revision of left hip replacement with removal of necrotic tissue. 2. Deconditioning, improving and working with therapy. 3. Congestive heart failure, compensated. 4. Atrial fibrillation with rate control, on anticoagulation. 5. CLL, being monitored closely and followed by Dr. Houston. PLAN: 1. Continue PT, OT. 2. Start nystatin swish and swallow for possible early monilial stomatitis, but also give B12 1000 mcg daily for possible stomatitis secondary to B12 deficiency. 3. Continue rate control, anticoagulation of atrial fibrillation. 4. Continue to monitor wound for any signs of infection. Job ID: [id number]
[2020-03-19] MEDS ORDERED: Cyanocobalamin 1000 MCG/ML VIAL IM SCH (18:00)
[2020-03-19] MEDS: Atorvastatin Calcium 10 MG TAB PO SCH (20:57)
[2020-03-19] MEDS: Mirtazapine 30 MG TAB PO SCH (20:57)
[2020-03-19] MEDS: Gabapentin 100 MG CAP PO SCH (20:57)
[2020-03-19] MEDS: Nystatin 500,000 UNITS/5 ML UDCUP SSW SCH (20:58)
[2020-03-20] MEDS: Famotidine 20 MG TAB PO SCH ×2 (08:47→20:35)
[2020-03-20] MEDS: Multivitamin W/ Minerals 1 TAB PO SCH (08:47)
[2020-03-20] MEDS: FLUoxetine HCl 10 MG CAP PO SCH (08:47)
[2020-03-20] MEDS: metFORMIN 500 MG TAB PO SCH ×2 (08:47→15:53)
[2020-03-20] MEDS: Fish Oil 1,000 MG CAP PO SCH (08:47)
[2020-03-20] MEDS: Nystatin 500,000 UNITS/5 ML UDCUP SSW SCH ×4 (08:47→20:35)
[2020-03-20] MEDS: Apixaban 2.5 MG TAB PO SCH ×2 (08:48→20:35)
--- NOTE | 2020-03-20 17:45 | PRG ---
DATE OF SERVICE: 03/20/2020 SUBJECTIVE: Ms. Gardiner is doing well. Denies any complaints. No family at bedside. Discussed with nursing. OBJECTIVE: VITAL SIGNS: She is afebrile. Heart rate is 83, respirations 20, oxygen saturation is 93% on 1 L of nasal cannula, and blood pressure was 173/90. CARDIOVASCULAR: S1 and S2 plus. RESPIRATORY: Normal vesicular breath sounds. ABDOMEN: Soft and nontender. Bowel sounds heard in all quadrants. EXTREMITIES: Without cyanosis or clubbing. CENTRAL NERVOUS SYSTEM: Generalized weakness, otherwise nonfocal. IMPRESSION: 1. Dehiscence of incision for left hip replacement, requiring debridement and closure. 2. Atrial fibrillation. 3. Osteoporosis. 4. Dyslipidemia. 5. Gastroesophageal reflux disease. 6. Diabetes mellitus type 2. 7. Depression and anxiety. 8. Deconditioning. PLAN: 1. Continue current medications. 2. 1800 calorie heart healthy ADA diet. 3. Accu-Cheks with sliding scale coverage. 4. Monitor blood pressure and adjust medications as needed. 5. DVT prophylaxis - she is on Eliquis. 6. Decubitus precaution. 7. Stress ulcer prophylaxis. Job ID: [id number]
[2020-03-20] MEDS: Gabapentin 100 MG CAP PO SCH (20:35)
[2020-03-20] MEDS: Mirtazapine 30 MG TAB PO SCH (20:35)
[2020-03-20] MEDS: Atorvastatin Calcium 10 MG TAB PO SCH (20:35)
[2020-03-21 05:20] LABS: Hemoglobin 8.5 g/dL (12.0-16.0); Platelet Count 59 thou/uL (130-400)
[2020-03-21 05:22] LABS: Calc. Creatinine Clearance 64 mL/min (70-130); Estimated GFR-MDRD Greater than 90
[2020-03-21] MEDS: FLUoxetine HCl 10 MG CAP PO SCH (08:51)
[2020-03-21] MEDS: Fish Oil 1,000 MG CAP PO SCH (08:51)
[2020-03-21] MEDS: Nystatin 500,000 UNITS/5 ML UDCUP SSW SCH ×4 (08:51→20:34)
[2020-03-21] MEDS: Multivitamin W/ Minerals 1 TAB PO SCH (08:52)
[2020-03-21] MEDS: metFORMIN 500 MG TAB PO SCH ×2 (08:52→17:24)
[2020-03-21] MEDS: Apixaban 2.5 MG TAB PO SCH ×2 (08:52→20:34)
[2020-03-21] MEDS: Famotidine 20 MG TAB PO SCH ×2 (08:52→20:34)
--- NOTE | 2020-03-21 12:27 | PRG ---
DATE OF SERVICE: 03/21/2020 SUBJECTIVE: Ms. Gardiner is resting in bed. Denies any complaints. Pain is controlled. No family. Discussed with nursing. OBJECTIVE: VITAL SIGNS: She is afebrile, heart rate is 89, respirations 20, oxygen saturation is 99% on room air, blood pressure 139/75. CARDIOVASCULAR SYSTEM: S1 and S2 plus. RESPIRATORY SYSTEM: Normal vesicular breath sounds. ABDOMEN: Soft and nontender. Bowel sounds heard in all quadrants. EXTREMITIES: Without cyanosis or clubbing. Hip incision is healthy. CENTRAL NERVOUS SYSTEM: Improving deconditioning. LABORATORY DATA: Her creatinine is 0.53. H and H are 8.5 and 26.3. IMPRESSION: 1. Wound dehiscence of left hip incision requiring debridement and closure. 2. Atrial fibrillation. 3. Osteoporosis. 4. Dyslipidemia. 5. Gastroesophageal reflux disease. 6. Diabetes mellitus, type 2. 7. Depression and anxiety. 8. Deconditioning. PLAN: 1. Continue current medications. 2. 1800-calorie heart healthy ADA diet. 3. Accu-Cheks with sliding scale coverage. 4. Monitor heart rate and rhythm. 5. DVT prophylaxis - she is on Eliquis. 6. Orthopedic precautions and incision care. 7. Physical therapy. 8. Routine laboratory values. 9. Dr. Won [facility]. Job ID: [id number]
[2020-03-21] MEDS: Mirtazapine 30 MG TAB PO SCH (20:34)
[2020-03-21] MEDS: Atorvastatin Calcium 10 MG TAB PO SCH (20:34)
[2020-03-21] MEDS: Gabapentin 100 MG CAP PO SCH (20:34)
[2020-03-21] MEDS: Acetaminophen 325 MG TAB PO PRN (20:34)
[2020-03-22] MEDS: metFORMIN 500 MG TAB PO SCH ×2 (09:03→16:23)
[2020-03-22] MEDS: Fish Oil 1,000 MG CAP PO SCH (09:04)
[2020-03-22] MEDS: Apixaban 2.5 MG TAB PO SCH ×2 (09:04→20:45)
[2020-03-22] MEDS: Famotidine 20 MG TAB PO SCH ×2 (09:04→20:44)
[2020-03-22] MEDS: Nystatin 500,000 UNITS/5 ML UDCUP SSW SCH ×4 (09:05→20:43)
[2020-03-22] MEDS: FLUoxetine HCl 10 MG CAP PO SCH (09:05)
[2020-03-22] MEDS: Multivitamin W/ Minerals 1 TAB PO SCH (09:05)
[2020-03-22] MEDS: Metoprolol Tartrate 25 MG TAB PO SCH ×2 (10:14→20:44)
[2020-03-22] MEDS: Mirtazapine 30 MG TAB PO SCH (20:43)
[2020-03-22] MEDS: Gabapentin 100 MG CAP PO SCH (20:43)
[2020-03-22] MEDS: Atorvastatin Calcium 10 MG TAB PO SCH (20:45)
[2020-03-22] MEDS: Acetaminophen 325 MG TAB PO PRN (21:31)
[2020-03-23] MEDS: FLUoxetine HCl 10 MG CAP PO SCH (09:37)
[2020-03-23] MEDS: Multivitamin W/ Minerals 1 TAB PO SCH (09:37)
[2020-03-23] MEDS: Metoprolol Tartrate 25 MG TAB PO SCH ×2 (09:37→21:11)
[2020-03-23] MEDS: Famotidine 20 MG TAB PO SCH ×2 (09:37→21:10)
[2020-03-23] MEDS: Fish Oil 1,000 MG CAP PO SCH (09:37)
[2020-03-23] MEDS: Nystatin 500,000 UNITS/5 ML UDCUP SSW SCH ×4 (09:38→21:10)
[2020-03-23] MEDS: Apixaban 2.5 MG TAB PO SCH ×2 (09:38→21:12)
[2020-03-23] MEDS: metFORMIN 500 MG TAB PO SCH ×2 (09:38→17:26)
[2020-03-23] MEDS: Acetaminophen 325 MG TAB PO PRN (21:10)
[2020-03-23] MEDS: Mirtazapine 30 MG TAB PO SCH (21:11)
[2020-03-23] MEDS: Gabapentin 100 MG CAP PO SCH (21:11)
[2020-03-23] MEDS: Atorvastatin Calcium 10 MG TAB PO SCH (21:11)
[2020-03-23] MEDS: Amlodipine 5 MG TAB PO SCH (21:13)
[2020-03-24 05:17] LABS: Hemoglobin 8.5 g/dL (12.0-16.0); Platelet Count 71 thou/uL (130-400)
[2020-03-24 05:28] LABS: Calc. Creatinine Clearance 57 mL/min (70-130); Estimated GFR-MDRD Greater than 90
--- NOTE | 2020-03-24 06:45 | PRG ---
DATE OF SERVICE: 03/23/2020 SUBJECTIVE: The patient feels well, visiting with family. No complaints of headaches or dizziness. Has been sleeping well. Has been eating well. OBJECTIVE: VITAL SIGNS: However, shows blood pressure still elevated at 190/77 this morning despite being placed on metoprolol yesterday. Temperature is 97, pulse 75 respirations 18, O2 sats 93% on half a liter. LUNGS: Clear. CARDIAC: Shows irregularly irregular rhythm. SKIN: Left lateral hip incision is healing well. ASSESSMENT: 1. Persistent hypertension despite placing on metoprolol and we will add amlodipine 2.5 mg at night. 2. Persistent hypoxia, on low-dose low-flow nasal cannula. We will monitor and may discontinue oxygen tomorrow. 3. Atrial fibrillation with rate control and anticoagulation. 4. Healing left lateral hip incision. We will continue to monitor. 5. Chronic lymphocytic leukemia, stable with hemoglobin to 8.5, hematocrit 26, and platelets 71,000. PLAN: CBC, comprehensive metabolic profile in the a.m. Amlodipine 2.5 mg at night. Repeat BNP. Attempt to wean off oxygen. Job ID: [id number]
[2020-03-24 07:03] LABS: ALT (SGPT) Less than 6 U/L (8-55); AST (SGOT) 20 U/L (5-34); Albumin 3.3 g/dL (3.4-4.8); Alkaline Phosphatase 80 U/L (40-110); Anion Gap 12 mmol/L (10-20); BUN (Urea Nitrogen) 14 mg/dL (9.8-20.1); Bilirubin, Total 0.5 mg/dL (0.2-1.2); Calc. Creatinine Clearance 55 mL/min (70-130); Calcium 8.4 mg/dL (7.8-10.44); Carbon Dioxide 29 mmol/L (23-31); Chloride 100 mmol/L (98-107); Estimated GFR-MDRD Greater than 90; Globulin 1.7 g/dL (2.4-3.5); Glucose 88 mg/dL (83-110); Potassium 4.2 mmol/L (3.5-5.1); Sodium 137 mmol/L (136-145)
[2020-03-24 07:15] LABS: Hemoglobin 8.5 g/dL (12.0-16.0); Mean Corpuscular HGB CONC 31.8 g/dL (32.0-36.0); Mean Corpuscular Hemoglobin 34.1 pg (27.0-31.0); Mean Platelet Volume 8.5 fL (7.4-10.4); Platelet Count 70 thou/uL (130-400); RBC Distribution Width 16.2 % (11.5-14.5); Red Blood Cell (RBC) Count 2.49 mill/uL (4.20-5.40)
[2020-03-24 07:17] LABS: Anisocytosis SLIGHT = 6-15 cells (100X) (0-5/hpf); Eosinophils 1 % (0-10); Hypochromia SLIGHT = 6-15 cells (100X) (0-5/hpf); Lymphocytes 85 % (21-51); MDiff Complete? YES; Macrocytosis SLIGHT = 6-15 cells (100X) (0-5/hpf); Monocytes 4 % (0-10); Neutrophil 10 % (42-75); Platelet Morphology Comment Appears Decreased; Spherocytes SLIGHT = 1-5 cells (100X) (None Seen)
[2020-03-24 07:18] LABS: White Blood Cell (WBC) Count 8.9 thou/uL (4.8-10.8)
--- NOTE | 2020-03-24 07:20 | PRG ---
DATE OF SERVICE: 03/22/2020 SUBJECTIVE: The patient feels well. No complaints of headaches or dizziness. Has been cooperating with therapy. Has been eating fairly well. Has had no headaches or dizziness. OBJECTIVE: VITAL SIGNS: Show blood pressure elevated to 167/82, pulse is 109, and respirations 18. She has had a history of atrial fibrillation with rate controlled metoprolol in the past. She is not taking it at this time. LUNGS: Clear. CARDIAC: Shows an irregular rhythm. ABDOMEN: Soft and nontender. SKIN/EXTREMITIES: Display healing left lateral hip incision. ASSESSMENT: 1. Atrial fibrillation with rate control, on anticoagulation. 2. Hypertension with inadequate control. 3. Healing left lateral hip incision with revision for removal of fat necrosis. 4. Deconditioning, improving status post left total hip. 5. Chronic lymphocytic leukemia, stable, being followed by Dr. Houston after discharge. PLAN: 1. Start metoprolol 12.5 mg twice daily. Monitor pulse and blood pressure. 2. Continue PT/OT. 3. Continue to monitor wound incision. 4. Continue anticoagulation for atrial fibrillation. Job ID: [id number]
[2020-03-24] MEDS: Nystatin 500,000 UNITS/5 ML UDCUP SSW SCH ×4 (08:49→20:58)
[2020-03-24] MEDS: Metoprolol Tartrate 25 MG TAB PO SCH ×2 (08:49→20:59)
[2020-03-24] MEDS: Fish Oil 1,000 MG CAP PO SCH (08:49)
[2020-03-24] MEDS: FLUoxetine HCl 10 MG CAP PO SCH (08:49)
[2020-03-24] MEDS: Multivitamin W/ Minerals 1 TAB PO SCH (08:49)
[2020-03-24] MEDS: Famotidine 20 MG TAB PO SCH ×2 (08:50→20:58)
[2020-03-24] MEDS: Apixaban 2.5 MG TAB PO SCH ×2 (08:50→20:58)
[2020-03-24] MEDS: metFORMIN 500 MG TAB PO SCH ×2 (08:50→17:27)
[2020-03-24] MEDS: Mirtazapine 30 MG TAB PO SCH (20:58)
[2020-03-24] MEDS: Amlodipine 5 MG TAB PO SCH (20:59)
[2020-03-24] MEDS: Gabapentin 100 MG CAP PO SCH (21:00)
[2020-03-24] MEDS: Atorvastatin Calcium 10 MG TAB PO SCH (21:00)
[2020-03-25] MEDS: metFORMIN 500 MG TAB PO SCH ×2 (08:11→17:28)
[2020-03-25] MEDS: Famotidine 20 MG TAB PO SCH ×2 (08:11→20:57)
[2020-03-25] MEDS: Apixaban 2.5 MG TAB PO SCH ×2 (08:11→20:57)
[2020-03-25] MEDS: Fish Oil 1,000 MG CAP PO SCH (08:11)
[2020-03-25] MEDS: Multivitamin W/ Minerals 1 TAB PO SCH (08:11)
[2020-03-25] MEDS: Nystatin 500,000 UNITS/5 ML UDCUP SSW SCH ×4 (08:12→20:59)
[2020-03-25] MEDS: Metoprolol Tartrate 25 MG TAB PO SCH ×2 (08:12→20:58)
[2020-03-25] MEDS: FLUoxetine HCl 10 MG CAP PO SCH (08:12)
[2020-03-25] MEDS: Acetaminophen 325 MG TAB PO PRN ×2 (08:18→20:58)
[2020-03-25] MEDS: Gabapentin 100 MG CAP PO SCH (20:56)
[2020-03-25] MEDS: Mirtazapine 30 MG TAB PO SCH (20:56)
[2020-03-25] MEDS: Atorvastatin Calcium 10 MG TAB PO SCH (20:57)
[2020-03-25] MEDS: Amlodipine 5 MG TAB PO SCH (20:57)
[2020-03-26] MEDS: Famotidine 20 MG TAB PO SCH ×2 (09:07→20:24)
[2020-03-26] MEDS: metFORMIN 500 MG TAB PO SCH ×2 (09:07→16:31)
[2020-03-26] MEDS: FLUoxetine HCl 10 MG CAP PO SCH (09:07)
[2020-03-26] MEDS: Metoprolol Tartrate 25 MG TAB PO SCH ×2 (09:07→20:24)
[2020-03-26] MEDS: Apixaban 2.5 MG TAB PO SCH ×2 (09:07→20:24)
[2020-03-26] MEDS: Fish Oil 1,000 MG CAP PO SCH (09:08)
[2020-03-26] MEDS: Multivitamin W/ Minerals 1 TAB PO SCH (09:08)
[2020-03-26] MEDS: Nystatin 500,000 UNITS/5 ML UDCUP SSW SCH ×4 (09:11→20:23)
[2020-03-26] MEDS: Atorvastatin Calcium 10 MG TAB PO SCH (20:24)
[2020-03-26] MEDS: Mirtazapine 30 MG TAB PO SCH (20:24)
[2020-03-26] MEDS: Gabapentin 100 MG CAP PO SCH (20:24)
[2020-03-26] MEDS: Amlodipine 5 MG TAB PO SCH (20:25)
[2020-03-26] MEDS: Acetaminophen 325 MG TAB PO PRN (20:26)
--- NOTE | 2020-03-27 06:35 | PRG ---
DATE OF SERVICE: 03/26/2020 SUBJECTIVE: Patient resting in bed after full day of therapy, exhausted, but in no distress. OBJECTIVE: VITAL SIGNS: With a temperature of 96.3, pulse 63, respirations 20, O2 sats 97% on 1.5 L, blood pressure 131/60. LUNGS: Clear. CARDIAC: Examination showed irregular rhythm. ABDOMEN: Soft, nontender with no masses or organomegaly. SKIN: Extremities shows healing left lateral hip incision. ASSESSMENT: 1. Resolving left lateral hip revision. 2. Stable atrial fibrillation. 3. Slowly improving deconditioning. 4. Stable chronic lymphocytic leukemia. PLAN: 1. Continue PT/OT. 2. Continue to stress compliance with physical therapy. 3. Continue rate control and anticoagulation of atrial fibrillation. 4. Remove prakash at 2 weeks. Job ID: [id number]
--- NOTE | 2020-03-27 06:50 | PRG ---
DATE OF SERVICE: 03/25/2020 SUBJECTIVE: The patient feels well, sitting up in the bed. She is exhausted, but has been working with therapy and walking in the room. She is having minimal pain in her left hip, only complains of weakness. OBJECTIVE: VITAL SIGNS: Pulse 69, blood pressure 152/63, O2 saturations 95% on 1.5 L. LUNGS: Clear. CARDIAC: Regular rhythm. ABDOMEN: Soft and nontender with no masses or organomegaly. SKIN/EXTREMITIES: Few diffuse ecchymoses. Left lateral hip incision healing well. LABORATORY DATA: Yesterday showed stable hemoglobin at 8.5, white count 8900. Sodium 137, potassium 4.2, chloride 100, bicarb 29, BUN 14, creatinine 0.62, albumin up to 3.3 from 3.2. ASSESSMENT: 1. Resolving revision of left lateral hip incision, status post removal of fat necrosis. 2. Stable chronic lymphocytic leukemia, awaiting chemotherapy on discharge. 3. Deconditioning, improving slowly. 4. Atrial fibrillation with adequate rate control anticoagulation. 5. Hypertension, controlled to goal. PLAN: 1. Continue PT and OT. 2. Continue rate control anticoagulation of atrial fibrillation. 3. Continue to stress compliance with therapies. 4. Continue to monitor wound for any further drainage and remove prakash in 2 weeks postop. 5. Continue to stress oral nutrition. Job ID: [id number]
[2020-03-27] MEDS: metFORMIN 500 MG TAB PO SCH ×2 (08:59→16:29)
[2020-03-27] MEDS: Multivitamin W/ Minerals 1 TAB PO SCH (09:01)
[2020-03-27] MEDS: Apixaban 2.5 MG TAB PO SCH ×2 (09:01→21:05)
[2020-03-27] MEDS: FLUoxetine HCl 10 MG CAP PO SCH (09:01)
[2020-03-27] MEDS: Metoprolol Tartrate 25 MG TAB PO SCH ×2 (09:02→21:05)
[2020-03-27] MEDS: Famotidine 20 MG TAB PO SCH ×2 (09:02→21:05)
[2020-03-27] MEDS: Fish Oil 1,000 MG CAP PO SCH (09:03)
[2020-03-27] MEDS: Nystatin 500,000 UNITS/5 ML UDCUP SSW SCH ×3 (09:04→16:29)
[2020-03-27] MEDS: Acetaminophen 325 MG TAB PO PRN (21:05)
[2020-03-27] MEDS: Gabapentin 100 MG CAP PO SCH (21:05)
[2020-03-27] MEDS: Mirtazapine 30 MG TAB PO SCH (21:06)
[2020-03-27] MEDS: Atorvastatin Calcium 10 MG TAB PO SCH (21:06)
[2020-03-27] MEDS: Amlodipine 5 MG TAB PO SCH (21:06)
--- NOTE | 2020-03-28 06:45 | PRG ---
DATE OF SERVICE: 03/27/2020 SUBJECTIVE: The patient is sitting up in the chair, feels well with only complaints of recurrent diarrhea. However, she has not asked for any medication. She states that she wishes to stop the nystatin swish and swallow as her mouth is feeling better and she feels this may be the cause of some of her diarrhea. She has not had therapy today because of the weekend. OBJECTIVE: VITAL SIGNS: Shows temperature is 99, pulse 63, respirations 20, O2 sats 98% on 1.5 L, and blood pressure 154/71 to 173/94. Left lateral hip is healing well and we will remove the prakash next week. CARDIAC: Shows irregularly irregular rhythm. ABDOMEN: Soft and nontender. SKIN AND EXTREMITIES: Display no edema, clubbing, or cyanosis. ASSESSMENT: 1. Resolving revision of left hip replacement secondary to fat necrosis. 2. Stable chronic lymphocytic leukemia. 3. Deconditioning, slowly improving. 4. Atrial fibrillation with rate control and anticoagulation. 5. Recurrent diarrhea. We will ask the patient to request Imodium. 6. Resolved stomatitis secondary to Monilia and we will discontinue nystatin. Job ID: [id number]
[2020-03-28] MEDS: Fish Oil 1,000 MG CAP PO SCH (08:31)
[2020-03-28] MEDS: Apixaban 2.5 MG TAB PO SCH ×2 (08:31→20:28)
[2020-03-28] MEDS: Metoprolol Tartrate 25 MG TAB PO SCH ×2 (08:31→20:30)
[2020-03-28] MEDS: metFORMIN 500 MG TAB PO SCH ×2 (08:31→17:16)
[2020-03-28] MEDS: Multivitamin W/ Minerals 1 TAB PO SCH (08:31)
[2020-03-28] MEDS: FLUoxetine HCl 10 MG CAP PO SCH (08:31)
[2020-03-28] MEDS: Famotidine 20 MG TAB PO SCH ×2 (08:31→20:30)
--- NOTE | 2020-03-28 19:43 | CT ---
CT CHEST WITHOUT CONTRAST: Date: 03-28-2020 Provided Clinical History: Right chest mass. FINDINGS: No comparison. The heart, pericardium and great vessels are suboptimally evaluated in the absence of IV contrast mat erial. Cardiac pacing device and vascular calcification including coronary calcium demonstrated. There are moderate/large bilateral pleural effusions with adjacent ectatic change. The aerated lung p arenchyma appears free of significant air opacity. The airway appears patent and normal caliber. There are enlarged bilateral axillary, mediastinal, and supraclavicular lymph nodes. The largest lymp h node in the right inferior axillary region likely reflecting the palpable mass measures about 6.6 x 3.7 cm in greatest transverse dimensions. The partially visualized upper abdomen is poorly evaluated on the basis of lack of oral and IV contra st and paucity of fat. There is greater than usual soft tissue density within the visualized portions of the retroperitoneum, presumably reflecting lymph node enlargement. The partially visualized sple en appears enlarged. The osseous structures demonstrate no concerning lytic or blastic lesions. Chron ic appearing compression deformities involving the lower thoracic spine as well as vertebroplasy hartman ge involving T11. Partially visualized lumbar post-operative change. IMPRESSION: 1. Extensive thoracic and likely also abdominal lymph node enlargement along with probable splenomega ly, suggesting lymphoma versus less likely metastatic disease. The palpable right axillary region mas s is compatible with a prominent enlarged lymph node. 2. Moderate to large bilateral pleural fluid collections. POS: ANIYAH
--- NOTE | 2020-03-28 20:22 | PRG ---
DATE OF SERVICE: 03/28/2020 SUBJECTIVE: The patient feels better, lying in bed, very weak, but now complaining of a tender subaxillary mass on the right side of her chest, which she states is new and increasing in size. She has no further diarrhea. She still has slightly sore mouth. OBJECTIVE: CHEST: Shows 4 cm subcutaneous tender soft tissue mass in the right anterior lateral chest wall. LUNGS: Clear. CARDIAC: Shows irregular rhythm. ABDOMEN: Soft and nontender. SKIN AND EXTREMITIES: Display no edema, clubbing, or cyanosis. Does have ecchymoses. ASSESSMENT: 1. An 84-year-old white female with resolving left total hip incision, status post revision of removal of fat necrosis with minimal pain, no drainage. 2. Chronic lymphocytic leukemia, being followed by Dr. Houston with treatment plans to determine in the future. 3. New onset of right anterior chest mass, does not appear to be a lymph node, but it is very tender and could be subcutaneous hematoma and we will get CT scan of the chest without contrast. 4. Atrial fibrillation with rate control and anticoagulation. 5. Deconditioning, slowly improving. PLAN: 1. Await results of CT scan. 2. Continue PT/OT. 3. Continue rate control and anticoagulation of atrial fibrillation. 4. Continue to stress adequate oral nutrition. Job ID: [id number]
[2020-03-28] MEDS: Amlodipine 5 MG TAB PO SCH (20:28)
[2020-03-28] MEDS: Atorvastatin Calcium 10 MG TAB PO SCH (20:29)
[2020-03-28] MEDS: Mirtazapine 30 MG TAB PO SCH (20:30)
[2020-03-28] MEDS: Acetaminophen 325 MG TAB PO PRN (20:31)
[2020-03-28] MEDS: Gabapentin 100 MG CAP PO SCH (20:40)
[2020-03-29] MEDS: Multivitamin W/ Minerals 1 TAB PO SCH (09:39)
[2020-03-29] MEDS: Fish Oil 1,000 MG CAP PO SCH (09:39)
[2020-03-29] MEDS: FLUoxetine HCl 10 MG CAP PO SCH (09:40)
[2020-03-29] MEDS: Famotidine 20 MG TAB PO SCH ×2 (09:40→20:12)
[2020-03-29] MEDS: metFORMIN 500 MG TAB PO SCH ×2 (09:40→17:07)
[2020-03-29] MEDS: Apixaban 2.5 MG TAB PO SCH ×2 (09:40→20:12)
[2020-03-29] MEDS: Metoprolol Tartrate 25 MG TAB PO SCH ×2 (09:40→20:11)
[2020-03-29] MEDS: Gabapentin 100 MG CAP PO SCH (20:12)
[2020-03-29] MEDS: Amlodipine 5 MG TAB PO SCH (20:12)
[2020-03-29] MEDS: Mirtazapine 30 MG TAB PO SCH (20:13)
[2020-03-29] MEDS: Atorvastatin Calcium 10 MG TAB PO SCH (20:13)
[2020-03-30 05:41] LABS: Hemoglobin 8.7 g/dL (12.0-16.0); Lymphocytes 41 % (21-51); MDiff Complete? YES; Macrocytosis MODERATE=16-30 cells (100X) (0-5/hpf); Mean Corpuscular HGB CONC 31.9 g/dL (32.0-36.0); Mean Platelet Volume 8.5 fL (7.4-10.4); Monocytes 4 % (0-10); Neutrophil 14 % (42-75); Platelet Count 98 thou/uL (130-400); Platelet Morphology Comment Appears Decreased; RBC Distribution Width 16.4 % (11.5-14.5); Reactive Lymphocytes 41 % (0-10); Red Blood Cell (RBC) Count 2.49 mill/uL (4.20-5.40); White Blood Cell (WBC) Count 18.3 thou/uL (4.8-10.8)
[2020-03-30 05:47] LABS: Anion Gap 16 mmol/L (10-20); BUN (Urea Nitrogen) 12 mg/dL (9.8-20.1); Calc. Creatinine Clearance 60 mL/min (70-130); Calcium 8.6 mg/dL (7.8-10.44); Carbon Dioxide 26 mmol/L (23-31); Chloride 100 mmol/L (98-107); Estimated GFR-MDRD Greater than 90; Glucose 107 mg/dL (83-110); Sodium 138 mmol/L (136-145)
[2020-03-30] MEDS: metFORMIN 500 MG TAB PO SCH ×2 (06:36→17:10)
--- NOTE | 2020-03-30 07:19 | PRG ---
DATE OF SERVICE: 03/29/2020 SUBJECTIVE: The patient feels very weak. No particular shortness of breath. Was unable to do therapy today because she states she was too weak. She has been somewhat intermittently confused, but appears to be alert and oriented and lucid at this time. OBJECTIVE: VITAL SIGNS: Shows her temperature is 97.3, pulse 70, respirations 16, O2 saturations 92% on 0.5 L, and blood pressure 164/72. LUNGS: Show decreased breath sounds in the bases. CARDIAC: Shows an irregular rhythm. ABDOMEN: Soft and nontender. DIAGNOSTIC DATA: CT scan, however, did show that she had multiple enlarged lymph nodes in the thoracic and probable abdominal area with the enlarged mass in the right anterior chest being lymph node as well as an enlarged spleen and moderate to large bilateral effusions. ASSESSMENT: 1. 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 2. Decompensation of congestive heart failure. 3. Chronic atrial fibrillation. PLAN: CBC, comprehensive metabolic profile in the a.m. Advised the patient of possible conversion and we will discuss with her oncologist, Dr. Houston tomorrow about possibility of chemotherapy. The patient also requests possible evaluation for palliative care and we will discuss with family. Job ID: [id number]
[2020-03-30] MEDS: Famotidine 20 MG TAB PO SCH ×3 (09:11→23:27)
[2020-03-30] MEDS: Metoprolol Tartrate 25 MG TAB PO SCH ×3 (09:11→23:27)
[2020-03-30] MEDS: Apixaban 2.5 MG TAB PO SCH ×3 (09:12→23:24)
[2020-03-30] MEDS: Fish Oil 1,000 MG CAP PO SCH (09:12)
[2020-03-30] MEDS: FLUoxetine HCl 10 MG CAP PO SCH (09:12)
[2020-03-30] MEDS: Multivitamin W/ Minerals 1 TAB PO SCH (09:12)
[2020-03-30] MEDS: Furosemide 40 MG TAB PO SCH ×2 (09:12→14:53)
[2020-03-30] MEDS: Atorvastatin Calcium 10 MG TAB PO SCH ×2 (20:32→23:27)
[2020-03-30] MEDS: Gabapentin 100 MG CAP PO SCH ×2 (20:32→23:27)
[2020-03-30] MEDS: Amlodipine 5 MG TAB PO SCH ×2 (20:32→23:26)
[2020-03-30] MEDS: Mirtazapine 30 MG TAB PO SCH ×2 (20:33→23:27)
--- NOTE | 2020-03-31 05:26 | PRG ---
DATE OF SERVICE: 03/30/2020 SUBJECTIVE: The patient is sitting up in the bed, feels well, has been eating better, did cooperate somewhat better with therapists, has been still persistently slightly confused but denies any chest pain, anorexia, or nausea. OBJECTIVE: VITAL SIGNS: Show temperature is 97, pulse 64, respirations 18, O2 saturations 95% on room air, and blood pressure 162/68. LUNGS: Clear with decreased breath sounds at bases. CARDIAC: Shows an irregular rhythm. ABDOMEN: Soft, nontender. EXTREMITIES: Left lateral hip incision has healed well. LABORATORY DATA: Shows white count increased 18,300, hematocrit 27, hemoglobin 8.7, platelet count 98,000, 41% lymphocytes, and 41% reactive lymphocytes. Sodium is 138, potassium 4.0, chloride 100, bicarb 26, BUN 12, and creatinine 0.57. BNP is 499. ASSESSMENT: 1. Chronic lymphocytic leukemia with probably conversion to diffuse lymphoma with diffuse mediastinal lymphadenopathy in the thorax and abdomen. Discussed this with her oncologist Dr. Houston, who feels that the oral chemotherapy that he offered her was something that would give her some response with minimal toxicity and would still recommend it. 2. Left lateral hip revision, resolved with no drainage, erythema, or warmth. 3. Deconditioning, slightly improved. 4. Atrial fibrillation with rate control, on anticoagulation. 5. Congestive heart failure with mild exacerbation. Normal renal function, responding to furosemide 40 mg twice daily. PLAN: 1. Discuss chemotherapy with patient and son as the patient does agree to the chemotherapy and possibly discharge to the half-way and continue this. As she is slightly confused at times, it feels that this is a lucid decision, but we will discuss with son. 2. Continue PT/OT. 3. Continue furosemide twice daily. 4. Continue rate control and anticoagulation. Job ID: [id number]
[2020-03-31] MEDS: Multivitamin W/ Minerals 1 TAB PO SCH (08:23)
[2020-03-31] MEDS: Famotidine 20 MG TAB PO SCH ×2 (08:23→20:52)
[2020-03-31] MEDS: metFORMIN 500 MG TAB PO SCH ×2 (08:23→16:03)
[2020-03-31] MEDS: FLUoxetine HCl 10 MG CAP PO SCH (08:24)
[2020-03-31] MEDS: Fish Oil 1,000 MG CAP PO SCH (08:24)
[2020-03-31] MEDS: Metoprolol Tartrate 25 MG TAB PO SCH ×2 (08:24→20:52)
[2020-03-31] MEDS: Apixaban 2.5 MG TAB PO SCH ×2 (08:24→20:52)
[2020-03-31] MEDS: Furosemide 40 MG TAB PO SCH ×2 (10:23→14:05)
[2020-03-31] MEDS: Amlodipine 5 MG TAB PO SCH (20:51)
[2020-03-31] MEDS: Gabapentin 100 MG CAP PO SCH (20:52)
[2020-03-31] MEDS: Mirtazapine 30 MG TAB PO SCH (20:52)
[2020-03-31] MEDS: Atorvastatin Calcium 10 MG TAB PO SCH (20:52)
--- NOTE | 2020-04-01 06:38 | PRG ---
DATE OF SERVICE: 03/31/2020 SUBJECTIVE: The patient feels much better today, more alert and cheerful, has been cooperating therapy, ate fairly well, although she states the food was not all that good. She is having no dyspnea, chest pain, or palpitations. OBJECTIVE: VITAL SIGNS: Shows temperature is 97, pulse 72, respirations 18, O2 sats 94% on 2 L, blood pressure is 112/56. GENERAL: Physical Therapy states that the patient was able to ambulate to the toilet, do ADLs with only standby assistance and Physical Therapy states that the patient walked 110 feet twice with only standby assistance with a wheelchair. LUNGS: Clear. CARDIAC: Shows irregular rhythm. ABDOMEN: Soft, nontender. EXTREMITIES: Left hip is healed. ASSESSMENT: 1. Resolving left lateral hip revision. 2. Chronic lymphocytic leukemia with conversion apparently to chronic lymphoma. Awaiting decision from the family about treatment as the patient is agreeable, but need to contact son. 3. Atrial fibrillation, rate controlled, on anticoagulation. 4. Deconditioning, improving. PLAN: Continue PT, OT. Attempt to discuss on outpatient chemotherapy as the patient is agreeable to chemotherapy and may be able to start when the patient is discharged. Job ID: [id number]
[2020-04-01] MEDS: Fish Oil 1,000 MG CAP PO SCH (08:17)
[2020-04-01] MEDS: Famotidine 20 MG TAB PO SCH ×2 (08:17→20:47)
[2020-04-01] MEDS: Multivitamin W/ Minerals 1 TAB PO SCH (08:17)
[2020-04-01] MEDS: Furosemide 40 MG TAB PO SCH ×2 (08:18→12:59)
[2020-04-01] MEDS: FLUoxetine HCl 10 MG CAP PO SCH (08:18)
[2020-04-01] MEDS: Metoprolol Tartrate 25 MG TAB PO SCH ×2 (08:18→20:47)
[2020-04-01] MEDS: metFORMIN 500 MG TAB PO SCH ×2 (08:19→16:05)
[2020-04-01] MEDS: Apixaban 2.5 MG TAB PO SCH ×2 (08:19→20:47)
[2020-04-01] MEDS: Atorvastatin Calcium 10 MG TAB PO SCH (20:47)
[2020-04-01] MEDS: Mirtazapine 30 MG TAB PO SCH (20:47)
[2020-04-01] MEDS: Gabapentin 100 MG CAP PO SCH (20:47)
[2020-04-01] MEDS: Amlodipine 5 MG TAB PO SCH (20:48)
[2020-04-02] MEDS: Famotidine 20 MG TAB PO SCH ×3 (08:42→20:45)
[2020-04-02] MEDS: Fish Oil 1,000 MG CAP PO SCH (08:42)
[2020-04-02] MEDS: Multivitamin W/ Minerals 1 TAB PO SCH (08:42)
[2020-04-02] MEDS: Apixaban 2.5 MG TAB PO SCH ×3 (08:42→20:45)
[2020-04-02] MEDS: metFORMIN 500 MG TAB PO SCH ×2 (08:43→17:23)
[2020-04-02] MEDS: Metoprolol Tartrate 25 MG TAB PO SCH ×2 (08:43→20:45)
[2020-04-02] MEDS: Furosemide 40 MG TAB PO SCH ×2 (08:44→14:25)
[2020-04-02] MEDS: FLUoxetine HCl 10 MG CAP PO SCH (08:44)
--- NOTE | 2020-04-02 19:30 | PRG ---
DATE OF SERVICE: 04/02/2020 SUBJECTIVE: The patient feels well lying in the bed, visited with her son today. Did have some confusion this morning, but is alert and lucid at this time, but did not talk about chemotherapy with her son, but states that they do want it. OBJECTIVE: VITAL SIGNS: Show temperature is 97, pulse is 60, respirations are 20, O2 saturation is 99% on room air, blood pressure is 128/62. LUNGS: Clear. CARDIAC: Shows a regular rhythm. ABDOMEN: Soft, nontender. SKIN AND EXTREMITIES: Showed a large right axillary lymph node, healed left lateral hip incision. ASSESSMENT: 1. Chronic lymphocytic leukemia converted to lymphoma. Awaiting decision from family for outpatient chemotherapy by Dr. Houston. 2. Atrial fibrillation with rate control and anticoagulation. 3. Deconditioning, improving as the patient walked 100 feet and 80 feet today. 4. Mild confusion, hospital delirium. 5. Resolved left total hip replacement and revision. PLAN: Continue PT, OT. Await decision from family to start outpatient chemotherapy. Discuss plans for care and possible placement until the patient is stronger after discharge. Job ID: [id number]
--- NOTE | 2020-04-02 19:32 | PRG ---
DATE OF SERVICE: 04/01/2020 SUBJECTIVE: The patient feels well, sitting up in bed, eating supper, cooperated with therapy today. States she is feeling stronger. OBJECTIVE: VITAL SIGNS: Show her to have temperature 98.1, pulse 65, respirations 20, O2 saturations 96% on 1.5 L, blood pressure 122/56. LUNGS: Clear. CARDIAC: Shows a regular rate and rhythm. ABDOMEN: Soft and nontender. MUSCULOSKELETAL: Left hip lateral incision has healed well. Persistent tender right axillary lymphadenopathy and anterior large lymphadenopathy. ASSESSMENT: 1. Chronic lymphocytic leukemia With probable conversion to lymphoma. Awaiting decision from son about chemotherapy as an outpatient. 2. Deconditioning, improving daily. 3. Atrial fibrillation with rate controlled on anticoagulation. 4. Left hip replacement, status post revision for fat necrosis, healing well. PLAN: Continue PT and OT as the patient is improving daily. Await decision about outpatient chemotherapy. Continue rate control on anticoagulation. Job ID: [id number]
[2020-04-02] MEDS: Acetaminophen 325 MG TAB PO PRN (20:44)
[2020-04-02] MEDS: Atorvastatin Calcium 10 MG TAB PO SCH ×2 (20:44→20:45)
[2020-04-02] MEDS: Mirtazapine 30 MG TAB PO SCH (20:44)
[2020-04-02] MEDS: Amlodipine 5 MG TAB PO SCH (20:45)
[2020-04-02] MEDS: Gabapentin 100 MG CAP PO SCH (20:45)
[2020-04-02] MEDS ORDERED: Sodium Chloride 0.9% 10 ML ONE (21:04)
[2020-04-02 21:22] LABS: Hemoglobin 8.3 g/dL (12.0-16.0); Red Blood Cell (RBC) Count 2.34 mill/uL (4.20-5.40); White Blood Cell (WBC) Count 10.1 thou/uL (4.8-10.8)
[2020-04-02 21:23] LABS: Manual Diff?? YES; Mean Corpuscular HGB CONC 32.9 g/dL (32.0-36.0); Mean Corpuscular Hemoglobin 35.2 pg (27.0-31.0); Platelet Count 90 thou/uL (130-400); RBC Distribution Width 15.5 % (11.5-14.5)
[2020-04-02 21:24] LABS: Mean Platelet Volume 8.1 fL (7.4-10.4)
[2020-04-02 21:32] LABS: Lymphocytes 54 % (21-51); Platelet Morphology Comment Appears Decreased; Reactive Lymphocytes 43 % (0-10)
[2020-04-02 21:34] LABS: RBC Morphology Normal
[2020-04-02 21:35] LABS: ALT (SGPT) 7 U/L (8-55); AST (SGOT) 20 U/L (5-34); Albumin 4.1 g/dL (3.4-4.8); Alkaline Phosphatase 86 U/L (40-110); Anion Gap 15 mmol/L (10-20); BUN (Urea Nitrogen) 22 mg/dL (9.8-20.1); Bilirubin, Total 0.8 mg/dL (0.2-1.2); Calc. Creatinine Clearance 45 mL/min (70-130); Calcium 8.8 mg/dL (7.8-10.44); Carbon Dioxide 35 mmol/L (23-31); Chloride 93 mmol/L (98-107); Estimated GFR-MDRD 75; Globulin 2.1 g/dL (2.4-3.5); Glucose 122 mg/dL (83-110); Potassium 3.7 mmol/L (3.5-5.1); Protein, Total 6.2 g/dL (6.0-8.3); Sodium 139 mmol/L (136-145)
[2020-04-02 21:36] LABS: MDiff Complete? YES
--- NOTE | 2020-04-02 21:38 | CT ---
CT Brain WO Con: 04/02/2020 9:23 PM CLINICAL HISTORY: Code Green. IMAGING TECHNIQUE: Multiple CT images were obtained of the brain without IV contrast. COMPARISON: CT of the brain dated December 28, 2019 FINDINGS: BRAIN: Evidence of acute infarct: None. Evidence of chronic ischemic change:There is mild chronic small vessel white matter ischemic change. There is generalized cerebral and cerebellar atrophy. Evidence of intracranial hemorrhage: None. Evidence of midline shift: Third ventricle and septum pellucidum are midline. Ventricles: Normal. No hydrocephalus. SKULL: Intact. VISUALIZED PARANASAL SINUSES: There is mild mucosal thickening within the right sphenoid air cell. MASTOID AIR CELLS: Clear. EXTRACRANIAL SOFT TISSUES: Normal. IMPRESSION: No acute intracranial abnormality.
--- NOTE | 2020-04-02 21:40 | RAD ---
Chest AP view INDICATION: Unresponsive COMPARISON: December 28, [address] a CT of the thorax dated March 28, 2020 FINDINGS: Lungs: There is bilateral interstitial airspace opacities suspicious for edema. Cardiac silhouette: There is persistent moderate cardiomegaly Pulmonary vasculature: There is [id number] pulmonary vascular congestion Pleural spaces: There is a small left and tiny right pleural effusion. Upper abdomen: There are vertebroplasty changes involving the thoracolumbar spine. There is instrume ntation involving the lumbar spine. Osseous structures: There is diffuse osteopenia. Additional findings: There is a dual-lead pacemaker overlying the left chest wall. IMPRESSION: Findings of [id number] CHF
[2020-04-02 21:48] LABS: Bilirubin Negative (Negative); Blood, Urine Negative (Negative); Clarity Clear (Clear); Glucose, Urine (Dipstick) Negative (Negative); Ketone, Urine Negative (Negative); Leukocyte Negative (Negative); Nitrite Negative (Negative); Protein, Urine (Dipstick) Negative (Neg-Trace)
[2020-04-02] MEDS: Sodium Chloride 0.9% 1,000 ML IV SCH (22:30)
[2020-04-03] MEDS: Metoprolol Tartrate 25 MG TAB PO SCH ×2 (12:17→20:34)
[2020-04-03] MEDS: metFORMIN 500 MG TAB PO SCH ×2 (12:17→17:37)
[2020-04-03] MEDS: Furosemide 40 MG TAB PO SCH ×2 (12:18→17:38)
[2020-04-03] MEDS: Famotidine 20 MG TAB PO SCH ×2 (12:18→20:33)
[2020-04-03] MEDS: FLUoxetine HCl 10 MG CAP PO SCH (12:18)
[2020-04-03] MEDS: Apixaban 2.5 MG TAB PO SCH ×2 (12:18→20:33)
[2020-04-03] MEDS: Multivitamin W/ Minerals 1 TAB PO SCH (12:19)
[2020-04-03] MEDS: Fish Oil 1,000 MG CAP PO SCH (12:19)
--- NOTE | 2020-04-03 16:07 | PRG ---
DATE OF SERVICE: 04/03/2020 SUBJECTIVE: Ms. Gardiner had an episode of unresponsiveness last evening, requiring a code green. ER physician evaluated her and did a complete workup. All her laboratory values are unremarkable. She was started on IV fluids. This morning, she apparently woke up, speech therapy evaluation she passed and was able to take her pills and currently her IV fluids are on hold. She is awake and responsive to questions. Denies any questions or concerns. No family at bedside. OBJECTIVE: VITAL SIGNS: She is afebrile. Heart rate 64, respirations 19, oxygen saturation 99%, blood pressure 145/62. CARDIOVASCULAR SYSTEM: S1 and S2 plus. RESPIRATORY SYSTEM: Normal vesicular breath sounds. ABDOMEN: Soft, nontender. Bowel sounds are heard in all quadrants. EXTREMITIES: Without cyanosis or clubbing. CENTRAL NERVOUS SYSTEM: Generalized weakness, otherwise nonfocal. IMPRESSION: 1. Dehiscence of incision for left hip replacement, requiring debridement and closure. 2. Atrial fibrillation. 3. Osteoporosis. 4. Dyslipidemia. 5. Gastroesophageal reflux disease. 6. Diabetes mellitus, type 2. 7. Depression and anxiety. 8. Deconditioning. 9. Much improved altered mental status. PLAN: 1. Continue current medications. 2. 1800-calorie heart-healthy ADA diet. 3. Hold IV fluids. 4. Aspiration precautions. 5. Physical therapy. 6. DVT prophylaxis - she is on Eliquis. 7. Decubitus precautions. 8. Stress ulcer prophylaxis. 9. Incision care. 10. Routine laboratory values. Job ID: [id number]
[2020-04-03] MEDS: Sodium Chloride 0.9% 1,000 ML IV SCH (17:38)
[2020-04-03] MEDS: Atorvastatin Calcium 10 MG TAB PO SCH (20:33)
[2020-04-03] MEDS: Gabapentin 100 MG CAP PO SCH (20:33)
[2020-04-03] MEDS: Mirtazapine 30 MG TAB PO SCH (20:33)
[2020-04-03] MEDS: Amlodipine 5 MG TAB PO SCH (20:36)
[2020-04-03] MEDS: Acetaminophen 325 MG TAB PO PRN (20:37)
[2020-04-04] MEDS: Multivitamin W/ Minerals 1 TAB PO SCH (08:32)
[2020-04-04] MEDS: Metoprolol Tartrate 25 MG TAB PO SCH ×2 (08:33→20:53)
[2020-04-04] MEDS: Acetaminophen 325 MG TAB PO PRN ×2 (08:33→20:55)
[2020-04-04] MEDS: Apixaban 2.5 MG TAB PO SCH ×2 (08:33→20:54)
[2020-04-04] MEDS: FLUoxetine HCl 10 MG CAP PO SCH (08:34)
[2020-04-04] MEDS: metFORMIN 500 MG TAB PO SCH ×2 (08:34→15:15)
[2020-04-04] MEDS: Famotidine 20 MG TAB PO SCH ×2 (08:35→20:53)
[2020-04-04] MEDS: Furosemide 40 MG TAB PO SCH ×2 (08:35→15:15)
[2020-04-04] MEDS: Fish Oil 1,000 MG CAP PO SCH (08:37)
--- NOTE | 2020-04-04 15:15 | PRG ---
DATE OF SERVICE: 04/04/2020 SUBJECTIVE: Ms. Gardiner is up on the side of her bed. She just finished her lunch. She denies any questions or concerns. No family at bedside. Discussed with nursing. OBJECTIVE: VITAL SIGNS: She is afebrile. Heart rate 61, respirations 16, oxygen saturation 96% on room air, blood pressure 111/58. CARDIOVASCULAR: S1 and S2 plus. RESPIRATORY: Normal vesicular breath sounds. ABDOMEN: Soft, nontender. Bowel sounds heard in all quadrants. EXTREMITIES: Without cyanosis or clubbing. Left hip incision is healthy. IMPRESSION: 1. Left hip incision dehiscence, requiring debridement and closure. 2. Atrial fibrillation. 3. Dyslipidemia. 4. Diabetes mellitus type 2. 5. Gastroesophageal reflux disease. 6. Deconditioning. PLAN: 1. Continue current medications. 2. Heart healthy ADA diet. 3. Accu-Cheks with sliding scale coverage. 4. DVT prophylaxis-she is on Eliquis. 5. Decubitus precautions. 6. Stress ulcer prophylaxis. 7. Orthopedic precautions. 8. Incision care. 9. Therapy. 10. Dr. Won wing [facility]. Job ID: [id number]
[2020-04-04] MEDS: Sodium Chloride 0.9% 1,000 ML IV SCH (16:22)
[2020-04-04] MEDS: Amlodipine 5 MG TAB PO SCH (20:52)
[2020-04-04] MEDS: Mirtazapine 30 MG TAB PO SCH (20:54)
[2020-04-04] MEDS: Gabapentin 100 MG CAP PO SCH (20:54)
[2020-04-04] MEDS: Atorvastatin Calcium 10 MG TAB PO SCH (20:55)
[2020-04-05] MEDS: Fish Oil 1,000 MG CAP PO SCH (08:19)
[2020-04-05] MEDS: Apixaban 2.5 MG TAB PO SCH ×2 (08:19→20:30)
[2020-04-05] MEDS: Famotidine 20 MG TAB PO SCH ×2 (08:19→20:30)
[2020-04-05] MEDS: FLUoxetine HCl 10 MG CAP PO SCH (08:19)
[2020-04-05] MEDS: metFORMIN 500 MG TAB PO SCH ×2 (08:19→16:38)
[2020-04-05] MEDS: Furosemide 40 MG TAB PO SCH ×2 (08:19→14:16)
[2020-04-05] MEDS: Metoprolol Tartrate 25 MG TAB PO SCH ×2 (08:19→20:30)
[2020-04-05] MEDS: Multivitamin W/ Minerals 1 TAB PO SCH (08:20)
[2020-04-05] MEDS: Sodium Chloride 0.9% 1,000 ML IV SCH (11:50)
[2020-04-05] MEDS: Amlodipine 5 MG TAB PO SCH (20:29)
[2020-04-05] MEDS: Gabapentin 100 MG CAP PO SCH (20:30)
[2020-04-05] MEDS: Atorvastatin Calcium 10 MG TAB PO SCH (20:30)
[2020-04-05] MEDS: Mirtazapine 30 MG TAB PO SCH (20:31)
[2020-04-06 06:05] LABS: Hemoglobin 8.1 g/dL (12.0-16.0); Platelet Count 88 thou/uL (130-400)
[2020-04-06] MEDS: FLUoxetine HCl 10 MG CAP PO SCH (08:20)
[2020-04-06] MEDS: Apixaban 2.5 MG TAB PO SCH ×2 (08:20→20:30)
[2020-04-06] MEDS: Famotidine 20 MG TAB PO SCH ×2 (08:20→20:31)
[2020-04-06] MEDS: Furosemide 40 MG TAB PO SCH (08:20)
[2020-04-06] MEDS: metFORMIN 500 MG TAB PO SCH ×2 (08:20→16:59)
[2020-04-06] MEDS: Fish Oil 1,000 MG CAP PO SCH (08:20)
[2020-04-06] MEDS: Metoprolol Tartrate 25 MG TAB PO SCH ×2 (08:21→20:29)
[2020-04-06] MEDS: Multivitamin W/ Minerals 1 TAB PO SCH (08:21)
[2020-04-06] MEDS: Sodium Chloride 0.9% 1,000 ML IV SCH (17:00)
[2020-04-06] MEDS: Gabapentin 100 MG CAP PO SCH (20:29)
[2020-04-06] MEDS: Mirtazapine 30 MG TAB PO SCH (20:30)
[2020-04-06] MEDS: Atorvastatin Calcium 10 MG TAB PO SCH (20:30)
[2020-04-06] MEDS: Amlodipine 5 MG TAB PO SCH (20:31)
[2020-04-07] MEDS: Famotidine 20 MG TAB PO SCH ×2 (09:39→20:16)
[2020-04-07] MEDS: Fish Oil 1,000 MG CAP PO SCH (09:39)
[2020-04-07] MEDS: Apixaban 2.5 MG TAB PO SCH ×2 (09:39→20:18)
[2020-04-07] MEDS: Metoprolol Tartrate 25 MG TAB PO SCH ×2 (09:39→20:17)
[2020-04-07] MEDS: Multivitamin W/ Minerals 1 TAB PO SCH (09:40)
[2020-04-07] MEDS: FLUoxetine HCl 10 MG CAP PO SCH (09:40)
[2020-04-07] MEDS: metFORMIN 500 MG TAB PO SCH ×2 (09:40→16:47)
[2020-04-07] MEDS: Amlodipine 5 MG TAB PO SCH (20:16)
[2020-04-07] MEDS: Gabapentin 100 MG CAP PO SCH (20:16)
[2020-04-07] MEDS: Mirtazapine 30 MG TAB PO SCH (20:16)
[2020-04-07] MEDS: Atorvastatin Calcium 10 MG TAB PO SCH (20:18)
[2020-04-08] MEDS: metFORMIN 500 MG TAB PO SCH ×2 (08:20→16:45)
[2020-04-08] MEDS: Fish Oil 1,000 MG CAP PO SCH (08:20)
[2020-04-08] MEDS: Multivitamin W/ Minerals 1 TAB PO SCH (08:20)
[2020-04-08] MEDS: FLUoxetine HCl 10 MG CAP PO SCH (08:20)
[2020-04-08] MEDS: Metoprolol Tartrate 25 MG TAB PO SCH ×2 (08:21→20:17)
[2020-04-08] MEDS: Apixaban 2.5 MG TAB PO SCH ×2 (08:21→20:17)
[2020-04-08] MEDS: Famotidine 20 MG TAB PO SCH ×2 (08:21→20:17)
[2020-04-08] MEDS: Acetaminophen 325 MG TAB PO PRN (09:18)
--- NOTE | 2020-04-08 17:59 | PRG ---
DATE OF SERVICE: 04/08/2020 SUBJECTIVE: The patient is lying in bed, resting. States she has worked hard with therapy and is waiting for chemotherapy and wishes to take it here at the hospital. OBJECTIVE: VITAL SIGNS: Shows temperature is 96, pulse 66, respirations 20, O2 saturations 97% on room air, blood pressure 125/64. LUNGS: Clear. CARDIAC: Shows a regular rhythm. ABDOMEN: Soft, nontender. SKIN AND EXTREMITIES: Showed healed left lateral hip incision and large right tender anterior axillary node. ASSESSMENT: 1. Chronic lymphocytic leukemia conversion to lymphoma. Awaiting chemotherapy pill, likely Xeloda. 2. Deconditioning, improving daily. 3. Atrial fibrillation, rate control and anticoagulation. PLAN: Continue PT, OT. Start chemotherapy when available. Transfer to [facility] next week after started chemotherapy. Job ID: [id number]
--- NOTE | 2020-04-08 18:01 | PRG ---
DATE OF SERVICE: 04/07/2020 SUBJECTIVE: The patient lying in bed, resting after working hard with therapy. Feels she is getting better. Hospital states the patient has 13 days of skilled facility left. [facility], however, has accepted also for unskilled Medicaid pending. PLAN: 1. Continue PT/OT. 2. Schedule transfer to [facility]. 3. Await chemotherapy. 4. Continue rate control and anticoagulation of atrial fibrillation. Job ID: [id number]
--- NOTE | 2020-04-08 18:21 | PRG ---
DATE OF SERVICE: 04/06/2020 SUBJECTIVE: The patient's son states that he has requested the chemotherapy to be mailed to his house from Dr. Houston's office and is awaiting it. The patient is requesting also the amount of days that she has remaining in skilled. OBJECTIVE: LUNGS: Clear. CARDIAC: Shows regular rhythm. ABDOMEN: Soft and nontender. SKIN/EXTREMITIES: Show healed left lateral hip incision. Blanco removed by nurse. LABORATORY DATA: Show platelet count is 88,000, hemoglobin 8.1, hematocrit 24. ASSESSMENT: 1. Resolving left lateral hip revision, healed well. 2. 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 Awaiting chemotherapy pills to be mailed to the patient. 3. Atrial fibrillation with rate controlled on anticoagulation. 4. Deconditioning, improving daily. Job ID: [id number]
[2020-04-08] MEDS: Amlodipine 5 MG TAB PO SCH (20:17)
[2020-04-08] MEDS: Mirtazapine 30 MG TAB PO SCH (20:19)
[2020-04-08] MEDS: Atorvastatin Calcium 10 MG TAB PO SCH (20:19)
[2020-04-08] MEDS: Gabapentin 100 MG CAP PO SCH (20:19)
[2020-04-09 05:52] LABS: Platelet Count 85 thou/uL (130-400)
[2020-04-09] MEDS: FLUoxetine HCl 10 MG CAP PO SCH (08:07)
[2020-04-09] MEDS: Apixaban 2.5 MG TAB PO SCH ×2 (08:07→20:25)
[2020-04-09] MEDS: Fish Oil 1,000 MG CAP PO SCH (08:07)
[2020-04-09] MEDS: Metoprolol Tartrate 25 MG TAB PO SCH ×2 (08:07→20:25)
[2020-04-09] MEDS: Famotidine 20 MG TAB PO SCH ×2 (08:07→20:25)
[2020-04-09] MEDS: Multivitamin W/ Minerals 1 TAB PO SCH (08:07)
[2020-04-09] MEDS: metFORMIN 500 MG TAB PO SCH ×2 (08:08→15:36)
--- NOTE | 2020-04-09 09:33 | PRG ---
DATE OF SERVICE: 04/05/2020 SUBJECTIVE: The patient feels well with no complaints, working with therapy. States that she has not seen her son today. OBJECTIVE: VITAL SIGNS: Her blood pressure is 112/62 and O2 sats 97% on room air. LUNGS: Clear. CARDIAC: Regular rhythm. ABDOMEN: Soft and nontender. SKIN/EXTREMITIES: Tender right axillary nodule, healed left lateral hip incision. No edema, clubbing or cyanosis. NEUROLOGICAL: Intact. ASSESSMENT: 1. Chronic lymphocytic leukemia conversion to probable lymphoma. Awaiting chemotherapy to the son. 2. Deconditioning, improving daily. 3. Atrial fibrillation with rate control and anticoagulation. 4. Resolved left hip replacement with revision of wound secondary to fat necrosis. PLAN: Continue. Job ID: [id number]
[2020-04-09] MEDS: Gabapentin 100 MG CAP PO SCH (20:25)
[2020-04-09] MEDS: Mirtazapine 30 MG TAB PO SCH (20:25)
[2020-04-09] MEDS: Atorvastatin Calcium 10 MG TAB PO SCH (20:25)
[2020-04-09] MEDS: Amlodipine 5 MG TAB PO SCH (20:26)
[2020-04-10] MEDS: metFORMIN 500 MG TAB PO SCH ×2 (08:08→16:12)
[2020-04-10] MEDS: Metoprolol Tartrate 25 MG TAB PO SCH ×2 (08:09→20:18)
[2020-04-10] MEDS: Apixaban 2.5 MG TAB PO SCH ×2 (08:09→20:18)
[2020-04-10] MEDS: FLUoxetine HCl 10 MG CAP PO SCH (08:09)
[2020-04-10] MEDS: Famotidine 20 MG TAB PO SCH ×2 (08:09→20:18)
[2020-04-10] MEDS: Fish Oil 1,000 MG CAP PO SCH (08:09)
[2020-04-10] MEDS: Multivitamin W/ Minerals 1 TAB PO SCH (08:11)
--- NOTE | 2020-04-10 16:10 | PRG ---
DATE OF SERVICE: 04/10/2020 SUBJECTIVE: Ms. Gardiner is resting in bed. She denies any questions or concerns. She is wondering how she would tolerate her chemotherapeutic agent. No family at bedside. OBJECTIVE: VITAL SIGNS: She is afebrile. Heart rate 62, respirations 16, oxygen saturation 90% on room air, blood pressure 114/58. CARDIOVASCULAR SYSTEM: S1 and S2 plus. RESPIRATORY SYSTEM: Normal vesicular breath sounds. ABDOMEN: Soft and nontender. Bowel sounds heard in all quadrants. EXTREMITIES: Without cyanosis or clubbing. IMPRESSION: 1. Dehiscence of left hip incision, status post debridement and closure. 2. Atrial fibrillation. 3. Dyslipidemia. 4. Diabetes mellitus, type 2. 5. Gastroesophageal reflux disease. 6. Improving deconditioning. 7. 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 PLAN: 1. Continue current medications. 2. Heart healthy diet. 3. Physical therapy. 4. Nutritional support. 5. DVT prophylaxis. She is on Eliquis. 6. Decubitus precaution. 7. Stress ulcer prophylaxis. Job ID: [id number]
[2020-04-10] MEDS: Mirtazapine 30 MG TAB PO SCH (20:18)
[2020-04-10] MEDS: Atorvastatin Calcium 10 MG TAB PO SCH (20:18)
[2020-04-10] MEDS: Gabapentin 100 MG CAP PO SCH (20:18)
[2020-04-10] MEDS: Amlodipine 5 MG TAB PO SCH (20:19)
[2020-04-11] MEDS: FLUoxetine HCl 10 MG CAP PO SCH (08:09)
[2020-04-11] MEDS: Famotidine 20 MG TAB PO SCH ×2 (08:09→20:03)
[2020-04-11] MEDS: Fish Oil 1,000 MG CAP PO SCH (08:09)
[2020-04-11] MEDS: Metoprolol Tartrate 25 MG TAB PO SCH ×2 (08:09→20:03)
[2020-04-11] MEDS: metFORMIN 500 MG TAB PO SCH ×2 (08:09→18:08)
[2020-04-11] MEDS: Apixaban 2.5 MG TAB PO SCH ×2 (08:09→20:03)
[2020-04-11] MEDS: Multivitamin W/ Minerals 1 TAB PO SCH (08:12)
--- NOTE | 2020-04-11 14:42 | PRG ---
DATE OF SERVICE: 04/11/2020 SUBJECTIVE: Ms. Gardiner is sleeping, but arousable. She denies any questions or concerns. Discussed with nursing chemotherapeutic agent. OBJECTIVE: VITAL SIGNS: She is afebrile. Heart rate 63, respirations 18, oxygen saturation 96%, and blood pressure 128/59. CARDIOVASCULAR: S1 and S2 plus. RESPIRATORY: Normal vesicular breath sounds. ABDOMEN: Soft, nontender. Bowel sounds heard in all quadrants. EXTREMITIES: Without cyanosis or clubbing. CENTRAL NERVOUS SYSTEM: Improving deconditioning. IMPRESSION: 1. Atrial fibrillation. 2. Chronic lymphocytic leukemia with current conversion to lymphoma. 3. Dyslipidemia. 4. Diabetes mellitus type 2. 5. Gastroesophageal reflux disease. 6. Dehiscence of left hip incision, status post debridement and closure. PLAN: 1. Continue current medications. 2. Heart healthy diet. 3. Monitor heart rate and rhythm. 4. DVT prophylaxis - she is on Eliquis. 5. Decubitus precautions. 6. Stress ulcer prophylaxis. 7. Physical therapy. 8. Routine laboratory values. 9. Dr. Won bond. Job ID: [id number]
[2020-04-11] MEDS: Mirtazapine 30 MG TAB PO SCH (20:03)
[2020-04-11] MEDS: Gabapentin 100 MG CAP PO SCH (20:03)
[2020-04-11] MEDS: Amlodipine 5 MG TAB PO SCH (20:03)
[2020-04-11] MEDS: Atorvastatin Calcium 10 MG TAB PO SCH (20:03)
[2020-04-11] MEDS: Acetaminophen 325 MG TAB PO PRN (20:03)
[2020-04-12] MEDS: FLUoxetine HCl 10 MG CAP PO SCH (08:50)
[2020-04-12] MEDS: Fish Oil 1,000 MG CAP PO SCH (08:50)
[2020-04-12] MEDS: Multivitamin W/ Minerals 1 TAB PO SCH (08:50)
[2020-04-12] MEDS: metFORMIN 500 MG TAB PO SCH ×2 (08:51→17:11)
[2020-04-12] MEDS: Metoprolol Tartrate 25 MG TAB PO SCH ×2 (08:51→20:29)
[2020-04-12] MEDS: Apixaban 2.5 MG TAB PO SCH ×2 (08:51→20:28)
[2020-04-12] MEDS: Famotidine 20 MG TAB PO SCH ×2 (08:51→20:27)
--- NOTE | 2020-04-12 13:49 | PRG ---
DATE OF SERVICE: 04/09/2020 SUBJECTIVE: The patient feels well, resting in bed, planning for discharge to [facility] next week and awaiting cancer, chemotherapy medication to be done as an outpatient. She is walking in the [place]. She is having no shortness of breath, but is requiring oxygen and is having no chest pain or abdominal pain. OBJECTIVE: VITAL SIGNS: Shows pulse 78, blood pressure 107/56, O2 saturation 99% on 2 L. LUNGS: Clear. CARDIAC: Shows regular rhythm. ABDOMEN: Soft, nontender. LABORATORY DATA: Hemoglobin is 8, platelet count 85,000. ASSESSMENT: 1. Resolving left hip revision of left hemiarthroplasty. 2. Stable atrial fibrillation with rate control and anticoagulation. 3. Chronic lymphocytic leukemia with conversion to lymphoma, awaiting outpatient chemotherapy. 4. Deconditioning, improving greatly. PLAN: 1. Transfer to [facility] next week. 2. Await outpatient chemotherapy pills. 3. Continue rate control and anticoagulation of atrial fibrillation. Job ID: [id number]
--- NOTE | 2020-04-12 13:52 | PRG ---
DATE OF SERVICE: 04/12/2020 SUBJECTIVE: The patient is lying in bed, feels well. She states she is ready to be transferred and she is walking in the [place]. Feels strong. Good appetite, sleeping well. OBJECTIVE: VITAL SIGNS: Temperature 98.6, pulse 62, respirations 18, O2 sats 97% on 1 L, blood pressure 121/56. LUNGS: Clear. CARDIAC: Irregular rhythm. ABDOMEN: Soft and nontender. SKIN/EXTREMITIES: Healed left lateral hip incision. ASSESSMENT: 1. Resolved left hip revision. 2. Chronic lymphocytic leukemia with conversion to lymphoma, awaiting chemotherapy. 3. Atrial fibrillation, rate controlled on anticoagulation. 4. Deconditioning, greatly improved. PLAN: Discharge to [facility] tomorrow. Obtain labs in the morning prior to discharge. Job ID: [id number]
[2020-04-12] MEDS: Gabapentin 100 MG CAP PO SCH (20:28)
[2020-04-12] MEDS: Acetaminophen 325 MG TAB PO PRN (20:28)
[2020-04-12] MEDS: Atorvastatin Calcium 10 MG TAB PO SCH (20:28)
[2020-04-12] MEDS: Amlodipine 5 MG TAB PO SCH (20:29)
[2020-04-12] MEDS: Mirtazapine 30 MG TAB PO SCH (20:29)
[2020-04-13 05:25] LABS: Hemoglobin 7.2 g/dL (12.0-16.0); Large Platelets SLIGHT; Lymphocytes 78 % (21-51); MDiff Complete? YES; Macrocytosis MODERATE=16-30 cells (100X) (0-5/hpf); Mean Corpuscular HGB CONC 32.3 g/dL (32.0-36.0); Mean Corpuscular Hemoglobin 34.8 pg (27.0-31.0); Mean Platelet Volume 8.7 fL (7.4-10.4); Monocytes 4 % (0-10); Neutrophil 8 % (42-75); Ovalocytes SLIGHT = 2-5 cells (100X) (0-1/hpf); Platelet Count 72 thou/uL (130-400); Platelet Morphology Comment Appears Decreased; RBC Distribution Width 15.3 % (11.5-14.5); Reactive Lymphocytes 10 % (0-10); Red Blood Cell (RBC) Count 2.07 mill/uL (4.20-5.40); Tear Drops SLIGHT = 2-5 cells (100X) (0-1/hpf)
[2020-04-13 05:26] LABS: White Blood Cell (WBC) Count 11.5 thou/uL (4.8-10.8)
[2020-04-13 05:31] LABS: ALT (SGPT) 12 U/L (8-55); AST (SGOT) 21 U/L (5-34); Albumin 3.5 g/dL (3.4-4.8); Alkaline Phosphatase 57 U/L (40-110); Anion Gap 14 mmol/L (10-20); BUN (Urea Nitrogen) 19 mg/dL (9.8-20.1); Bilirubin, Total 0.6 mg/dL (0.2-1.2); Calc. Creatinine Clearance 56 mL/min (70-130); Calcium 8.3 mg/dL (7.8-10.44); Carbon Dioxide 27 mmol/L (23-31); Chloride 99 mmol/L (98-107); Estimated GFR-MDRD Greater than 90; Globulin 1.7 g/dL (2.4-3.5); Glucose 96 mg/dL (83-110); Potassium 3.8 mmol/L (3.5-5.1); Protein, Total 5.2 g/dL (6.0-8.3); Sodium 136 mmol/L (136-145)
[2020-04-13] MEDS: Multivitamin W/ Minerals 1 TAB PO SCH (08:21)
[2020-04-13] MEDS: Fish Oil 1,000 MG CAP PO SCH (08:21)
[2020-04-13] MEDS: FLUoxetine HCl 10 MG CAP PO SCH (08:21)
[2020-04-13] MEDS: metFORMIN 500 MG TAB PO SCH ×2 (08:22→17:26)
[2020-04-13] MEDS: Famotidine 20 MG TAB PO SCH ×2 (08:22→20:36)
[2020-04-13] MEDS: Apixaban 2.5 MG TAB PO SCH ×2 (08:22→20:36)
[2020-04-13] MEDS: Metoprolol Tartrate 25 MG TAB PO SCH ×2 (08:22→20:36)
[2020-04-13] MEDS: Gabapentin 100 MG CAP PO SCH (20:35)
[2020-04-13] MEDS: Amlodipine 5 MG TAB PO SCH (20:35)
[2020-04-13] MEDS: Atorvastatin Calcium 10 MG TAB PO SCH (20:36)
[2020-04-13] MEDS: Mirtazapine 30 MG TAB PO SCH (20:36)
[2020-04-13] MEDS ORDERED: Sodium Chloride 0.9% 20 ML ONE (21:02)
[2020-04-14 07:03] LABS: Hemoglobin 9.9 g/dL (12.0-16.0)
[2020-04-14 08:00] VITALS: TEMP 98.1
[2020-04-14] MEDS: FLUoxetine HCl 10 MG CAP PO SCH (08:10)
[2020-04-14] MEDS: Fish Oil 1,000 MG CAP PO SCH (08:10)
[2020-04-14] MEDS: metFORMIN 500 MG TAB PO SCH (08:10)
[2020-04-14] MEDS: Famotidine 20 MG TAB PO SCH (08:10)
[2020-04-14] MEDS: Apixaban 2.5 MG TAB PO SCH (08:10)
[2020-04-14] MEDS: Multivitamin W/ Minerals 1 TAB PO SCH (08:11)
[2020-04-14] MEDS: Metoprolol Tartrate 25 MG TAB PO SCH (08:11)
[2020-04-14 09:47] VITALS: BP 116/56
--- NOTE | 2020-04-14 13:14 | DIS ---
DATE OF ADMISSION: 03/14/2020 DATE OF DISCHARGE: 04/14/2020 FINAL DIAGNOSES: 1. 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 Awaiting oral chemotherapy with Xeloda be given as an outpatient under the care of Dr. Houston. 2. Deconditioning, greatly improved with ability to maintain ADLs. 3. Revision of left total hip replacement, completely healed. 4. Atrial fibrillation with rate control on anticoagulation. 5. Depression and anxiety, greatly improved. 6. Tachycardia-bradycardia syndrome, status post pacemaker placement. 7. Type 2 diabetes, well controlled. HOSPITAL COURSE: The patient is an 84-year-old white female, well known to myself with a long history of chronic lymphocytic leukemia, diastolic heart failure, atrial fibrillation and tachycardia-bradycardia syndrome status post pacemaker placement, and chronic lymphocytic leukemia, being followed by Dr. Emanuel Houston, who was admitted to the hospital after revision of a left femoral neck fracture with dehiscence of the wound secondary to fat necrosis. This completely resolved in the hospitalization and healed well. However, she was significantly deconditioned and required further physical therapy, but was walking in the [place] prior to discharge, maintaining ADLs; however, she did develop a complication of increased lymphadenopathy, felt to be due to a conversion of her chronic lymphocytic leukemia to lymphoma. She had been seen by her oncologist, Dr. Emanuel Houston, who has offered her outpatient oral chemotherapy. She has initially refused, but now has accepted that and the medication has been ordered. Despite her improving, her son states that she cannot maintain her ADLs at home and wished her to go to the [facility], and therefore, she has been accepted, Medicaid pending as her skilled days are essentially gone. She will therefore be discharged to [facility] Medicaid pending. She will obtain her outpatient chemotherapy. She will follow up with Dr. Houston and myself. She will be continued on rate control and anticoagulation of her atrial fib. MEDICATIONS ON DISCHARGE: 1. Apixaban 2.5 mg twice daily. 2. Amlodipine 2.5 mg nightly. 3. Famotidine 20 twice daily. 4. Gabapentin 100 nightly. 5. Prozac 10 daily. 6. Metformin 500 twice daily. 7. Metoprolol 12.5 twice daily. 8. Mirtazapine 30 nightly. 9. Protonix 40 daily. She will follow up with myself at the skilled nursing in [address] Houston as requested. On discharge, her laboratory showed her hemoglobin was low at 7.2 with hematocrit of 22. She was asymptomatic and this will be followed. Platelet count was 72,000. Sodium 136, potassium 3.8, chloride 99, bicarb 27, BUN 19, creatinine 0.6, GFR of 90, and calcium 8.3. AST 21 and ALT 12. ADDENDUM: I feel because of hemoglobin 7.2 and decreasing with lymphoma, we will go ahead and give 1 unit of packed cells prior to discharge. Job ID: [id number]
== END 2020-04-14 11:50 | DRG 841 ==
LOC: NAV ACUTE 16:35
PROVIDERS: ADMIT Internal Medicine; ATTEND Internal Medicine
DX: C91.10 Chronic lymphocytic leukemia of B-cell type not having achieved remission (principal); I50.32 Chronic diastolic (congestive) heart failure; B37.0 Candidal stomatitis; R53.81 Other malaise; M79.89 Other specified soft tissue disorders; Z96.642 Presence of left artificial hip joint; F41.9 Anxiety disorder, unspecified; I49.5 Sick sinus syndrome; E11.9 Type 2 diabetes mellitus without complications; Z96.652 Presence of left artificial knee joint; F32.9 Major depressive disorder, single episode, unspecified; D64.9 Anemia, unspecified; D69.6 Thrombocytopenia, unspecified; I48.91 Unspecified atrial fibrillation; K21.9 Gastro-esophageal reflux disease without esophagitis; Y83.8 Other surgical procedures as the cause of abnormal reaction of the patient, or of later complication, without mention of misadventure at the time of the procedure; M81.0 Age-related osteoporosis without current pathological fracture; R32 Unspecified urinary incontinence; Z95.0 Presence of cardiac pacemaker; Z79.01 Long term (current) use of anticoagulants; Z90.710 Acquired absence of both cervix and uterus
CPT/HCPCS: 36415; 36416; 36430; 70450; 71045; 71250; 80048; 80053; 81003; 82565; 83880; 84484; 85014; 85018; 85025; 85049; 86850; 86870; 86900; 86901; 86922; J7050; P9016